=== PATIENT | male | born 1940 | race Caucasian/White ===

== ENCOUNTER 2018-05-31 07:12 | Observation (INO) ==
[2018-05-31] MEDS ORDERED: Ondansetron 4 MG/2 ML VIAL IVP ONE (07:24)
[2018-05-31] MEDS ORDERED: 0.9 % Sodium Chloride 500 ML IVC ONE (07:24)
[2018-05-31] MEDS ORDERED: Aspirin 81 MG TAB.CHEW PO ONE (07:24)
[2018-05-31] MEDS ORDERED: *HR* Morphine 2 MG/ML SYRINGE IVP ONE ×2 (07:24→08:17)
[2018-05-31 07:51] LABS: Basophils # 0.1 K/mcL (0.0-0.2); Basophils % 0.6 %; Eosinophils % 0.1 %; Hematocrit 47.6 % (37.5-50.1); Hemoglobin 15.5 g/dL (12.9-16.9); Immature Granulocytes % 0.3 % (0-4); Lymphocytes # 1.7 K/mcL (0.6-4.6); Lymphocytes % 20.2 %; Mean Corpuscular HGB Conc 32.6 g/dL (31.6-35.5); Mean Corpuscular Hemoglobin 28.3 pg (28.0-33.3); Mean Platelet Volume 10.6 fL (9.4-12.4); Monocytes % 11.3 %; Neutrophils # 5.8 K/mcL (1.6-8.9); Platelet Count 259 K/mcL (140-400); Red Blood Count 5.47 M/mcL (4.19-5.50); Red Cell Distribution Width 13.5 % (11.5-14.5); Segmented Neutrophils % 67.5 %
[2018-05-31 08:02] LABS: INR 1.1; Prothrombin Time 12.5 Seconds (9.4-12.1)
[2018-05-31 08:15] LABS: Albumin 4.5 g/dL (3.5-5.7); Albumin/Globulin Ratio 1.3 (1.1-2.2); Bilirubin,Direct 0.2 mg/dL (0.0-0.2); Bilirubin,Indirect 0.5 mg/dL (0.0-1.2); Bilirubin,Total 0.7 mg/dL (0.3-1.0); Globulin 3.5 g/dL (2.4-3.5)
[2018-05-31 08:17] LABS: Troponin I < 0.03 ng/mL (< 0.04)
--- NOTE | 2018-05-31 08:21 | Emergency Department Note ---
Disposition Clinical Impression: V-tach, Unstable angina Disposition: Admitted As Inpatient Referrals: Jaja Parrish MD [Primary Care Provider] - General Adult HPI - General Chief complaint: ED Extremity Injury, Upper Stated complaint: Left Shoulder Pain Time Seen by Provider: 05/31/18 07:16 Source: patient, family Limitations: no limitations - History of Present Illness Pain Scale: 9 - Related Data Home Medications Medication Instructions Recorded Confirmed Albuterol Sulfate [Albuterol 2 puff IH Q4HR PRN 02/15/16 01/11/18 Inhaler] Calcium Carbonate [Calcium] 500 mg PO DAILY 02/15/16 01/11/18 Cetirizine HCl [24Hour Allergy] 10 mg PO DAILY 02/15/16 01/11/18 Ferrous Sulfate 325 mg PO BIDWM 02/15/16 01/11/18 Gabapentin [Neurontin] 800 mg PO TID 02/15/16 01/11/18 Gemfibrozil [Lopid] 600 mg PO BIDWM 02/15/16 01/11/18 Isosorbide MONOnitrate (24 HR) 30 mg PO DAILY 02/15/16 01/11/18 [Imdur] Metoprolol [Lopressor] 50 mg PO BID 02/15/16 01/11/18 Omeprazole [PriLOSEC] 40 mg PO DAILY 02/15/16 01/11/18 OxyCODONE/APAP 10/325 [Percocet 1 each PO Q4HR PRN 02/15/16 01/11/18 10/325 MG] glipiZIDE [Glipizide] 10 mg PO BID 02/15/16 01/11/18 Cholecalciferol (D-3) [Vitamin D] 5,000 unit PO DAILY 05/12/16 01/11/18 Bumetanide [Bumex] 1 mg PO QPM PRN 03/11/17 01/11/18 Bumetanide [Bumex] 2 mg PO QAM PRN 03/11/17 01/11/18 Insulin Regular U-500 [HumuLIN R 3 unit SQ Q1-2H 03/11/17 01/11/18 U-500] Previous Rx's Medication Instructions Recorded Sulfamethoxazole/Trimeth DS 1 each PO BID #20 tablet 01/11/18 [Bactrim DS] HYDROcodone/Acet 5/325 mg [[place] 1 tab PO Q4H PRN 3 Days #14 tab 05/29/18 5-325 mg] Allergies Allergy/AdvReac Type Severity Reaction Status Date / Time No Known Allergies Allergy Verified 05/31/18 07:14 Past Medical History - Past Medical History Medical history: Reports: cancer, diabetes, hypertension Surgical history: Reports: cancer surgery, coronary bypass (CABG), prostatectomy Psychiatric history: Reports: no psych history - Social History Smoking Status: Former smoker Smokeless Tobacco Status: No Alcohol use: Reports: rarely Drug use: Reports: none Physical Exam - General Limitations: no limitations General appearance: alert Course Vital Signs Temperature 97.7 F 05/31/18 07:14 Pulse Rate 118 05/31/18 07:14 Respiratory Rate 20 05/31/18 07:14 Blood Pressure 133/106 05/31/18 07:14 O2 Sat by Pulse Oximetry 98 05/31/18 07:14 Temperature 97.7 F 05/31/18 07:14 Pulse Rate 93 05/31/18 07:56 Respiratory Rate 18 05/31/18 07:56 Blood Pressure 144/87 05/31/18 07:56 O2 Sat by Pulse Oximetry 98 05/31/18 07:56 Oxygen Delivery Oxygen Delivery Room Air Medical Decision Making - Lab Data Result diagrams: 05/31/18 07:42 Lab Results 05/31/18 05/31/18 05/31/18 Range/Units 07:42 07:42 07:42 WBC 8.6 (4.3-11.1) K/mcL RBC 5.47 (4.19-5.50) M/mcL Hgb 15.5 (12.9-16.9) g/dL Hct 47.6 (37.5-50.1) % MCV 87.0 (83.0-100.0) fL MCH 28.3 (28.0-33.3) pg MCHC 32.6 (31.6-35.5) g/dL RDW 13.5 (11.5-14.5) % Plt Count 259 (140-400) K/mcL MPV 10.6 (9.4-12.4) fL Immature Gran % 0.3 (0-4) % Seg Neutrophils % 67.5 % Lymphocytes % 20.2 % Monocytes % 11.3 % Eosinophils % 0.1 % Basophils % 0.6 % Neutrophils # 5.8 (1.6-8.9) K/mcL Lymphocytes # 1.7 (0.6-4.6) K/mcL Monocytes # 1.0 (0.0-1.3) K/mcL Eosinophils # 0.0 (0.0-0.6) K/mcL Basophils # 0.1 (0.0-0.2) K/mcL PT 12.5 H (9.4-12.1) Seconds INR 1.1 APTT 31.0 (26.0-36.0) Seconds Total Bilirubin 0.7 (0.3-1.0) mg/dL Direct Bilirubin 0.2 (0.0-0.2) mg/dL Indirect Bilirubin 0.5 (0.0-1.2) mg/dL AST 14 (13-39) Units/L ALT 20 (7-52) Units/L Alkaline Phosphatase 63 (34-104) Units/L Troponin I (< 0.04) ng/mL Serum Total Protein 8.0 (6.4-8.9) g/dL Albumin 4.5 (3.5-5.7) g/dL Globulin 3.5 (2.4-3.5) g/dL Albumin/Globulin Ratio 1.3 (1.1-2.2) 05/31/18 Range/Units 07:42 WBC (4.3-11.1) K/mcL RBC (4.19-5.50) M/mcL Hgb (12.9-16.9) g/dL Hct (37.5-50.1) % MCV (83.0-100.0) fL MCH (28.0-33.3) pg MCHC (31.6-35.5) g/dL RDW (11.5-14.5) % Plt Count (140-400) K/mcL MPV (9.4-12.4) fL Immature Gran % (0-4) % Seg Neutrophils % % Lymphocytes % % Monocytes % % Eosinophils % % Basophils % % Neutrophils # (1.6-8.9) K/mcL Lymphocytes # (0.6-4.6) K/mcL Monocytes # (0.0-1.3) K/mcL Eosinophils # (0.0-0.6) K/mcL Basophils # (0.0-0.2) K/mcL PT (9.4-12.1) Seconds INR APTT (26.0-36.0) Seconds Total Bilirubin (0.3-1.0) mg/dL Direct Bilirubin (0.0-0.2) mg/dL Indirect Bilirubin (0.0-1.2) mg/dL AST (13-39) Units/L ALT (7-52) Units/L Alkaline Phosphatase (34-104) Units/L Troponin I < 0.03 (< 0.04) ng/mL Serum Total Protein (6.4-8.9) g/dL Albumin (3.5-5.7) g/dL Globulin (2.4-3.5) g/dL Albumin/Globulin Ratio (1.1-2.2) Attestation Statement - Attestation Attestation: For this encounter, I have reviewed the BURN OUT SCARFING OPERATOR or PA documentation, treatment plan, and medical decision making; and I have had face to face time with this patient. 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 He had a 3 beat unsustained Vtach. Shelbie states he is chest pain free, we have discussed case with Dr. Kaplan who recommends admit to medicine with cards consult NO heparin at this time. Shelbie will be admitted to medicine, stable at this time
[2018-05-31 08:24] LABS: BUN/Creatinine Ratio 16 (6-26); Blood Urea Nitrogen 29 mg/dL (8-23); Calcium 9.7 mg/dL (8.6-10.3); Carbon Dioxide 19 mEq/L (23-29); Chloride 98 mEq/L (98-107); Glucose 394 mg/dL (70-105); Osmolality,Calculated 294 (280-300); Potassium 4.5 mEq/L (3.5-5.1); Sodium 131 mEq/L (136-145); eGFR For Non-African Americans 36 (> 60)
[2018-05-31] MEDS ORDERED: Nitroglycerin 0.4 MG TAB.SUBL SL ONE (08:24)
[2018-05-31] MEDS ORDERED: Furosemide 40 MG/4 ML VIAL IVP ONE (08:27)
--- NOTE | 2018-05-31 08:28 | Emergency Department Note ---
Disposition Clinical Impression: V-tach Shoulder pain, left Qualifiers: Chronicity: acute Qualified Code(s): M25.512 - Pain in left shoulder Disposition: Admitted As Inpatient Condition: Fair Referrals: Jaja Parrish MD [Primary Care Provider] - Forms: ED Satisfaction Letter General Adult HPI - General Chief complaint: ED Extremity Injury, Upper Stated complaint: Left Shoulder Pain Time Seen by Provider: 05/31/18 07:16 Source: patient, family Mode of arrival: private vehicle Limitations: no limitations Nursing Notes Reviewed: Yes Vital Signs Reviewed: Yes - History of Present Illness Pt Subjective Complaint: Left shoulder pain Onset (ago): day(s) Location: left, upper extremity (shoulder) Radiation: non-radiation Pain Severity: severe Pain Scale: 9 Quality: stabbing, aching Consistency: constant Improves with: nothing Worsens with: movement Associated symptoms: Reports: diaphoresis. Denies: chest pain (not now, but a couple times this month), cough, fever/chills, headaches, loss of appetite, malaise, nausea/vomiting, rash, seizure, shortness of breath, syncope, weakness Treatments Prior to Arrival: other (was seen at [facility] two days ago for same. Had xrays done. Dx Strain or Sprain. Rx NSAIDS. Has taken home Rx Percocet with no relief) - Related Data Home Medications Medication Instructions Recorded Confirmed Cetirizine HCl [24Hour Allergy] 10 mg PO DAILY 02/15/16 01/11/18 Gabapentin [Neurontin] 800 mg PO TID 02/15/16 01/11/18 Gemfibrozil [Lopid] 600 mg PO BIDWM 02/15/16 01/11/18 Metoprolol [Lopressor] 50 mg PO BID 02/15/16 01/11/18 Omeprazole [PriLOSEC] 40 mg PO DAILY 02/15/16 01/11/18 OxyCODONE/APAP 10/325 [Percocet 1 each PO Q4HR PRN 02/15/16 01/11/18 10/325 MG] glipiZIDE [Glipizide] 10 mg PO BID 02/15/16 01/11/18 Cholecalciferol (D-3) [Vitamin D] 5,000 unit PO DAILY 05/12/16 01/11/18 Bumetanide [Bumex] 1 mg PO QPM PRN 03/11/17 01/11/18 Bumetanide [Bumex] 2 mg PO QAM PRN 03/11/17 01/11/18 Insulin Pump Cartridge [Insulin 0 unit SQ AD 05/31/18 05/31/18 Pump] Insulin Regular, Human [Novolin R] 0 unit SQ AD 05/31/18 05/31/18 Isosorbide MONOnitrate (24 HR) 60 mg PO DAILY 05/31/18 05/31/18 [Imdur] Allergies Allergy/AdvReac Type Severity Reaction Status Date / Time No Known Allergies Allergy Verified 05/31/18 07:14 All systems ED: reviewed and negative except as stated. Review of Systems: As Per HPI Constitutional: Denies: fever, chills, weakness, night sweats Cardiovascular: Reports: as per HPI, chest pain, dyspnea on exertion. Denies: palpitations, orthopnea, edema, syncope Respiratory: Denies: cough, dyspnea, wheezes, hemoptysis, stridor, sputum production Gastrointestinal: Reports: nausea. Denies: abdominal pain, vomiting, diarrhea Musculoskeletal: Reports: as per HPI, arthralgia. Denies: back pain, neck pain, joint swelling Neurological: Denies: headache, weakness, numbness, paresthesias, confusion, abnormal gait, vertigo Hematological/Lymphatic: Denies: easy bleeding, easy bruising Past Medical History - Past Medical History Attestation: Yes The following information was validated with the patient. Source: patient Medical history: Reports: cancer, diabetes, hypertension Surgical history: Reports: cancer surgery, coronary bypass (CABG), prostatectomy Psychiatric history: Reports: no psych history - Social History Smoking Status: Former smoker Smokeless Tobacco Status: No Alcohol use: Reports: rarely Drug use: Reports: none Physical Exam - General Limitations: no limitations General appearance: alert, anxious, in distress - Head Head exam: atraumatic, normocephalic, normal inspection - Eye Eye exam: Present: normal appearance, PERRL. Absent: scleral icterus, conjunctival injection, miosis, mydriasis, periorbital swelling - ENT ENT exam: mucous membranes moist - Neck Neck exam: Present: normal inspection, full ROM, trachea midline. Absent: tenderness, meningismus - Chest Chest inspection: Present: normal inspection. Absent: tenderness - Respiratory Respiratory exam: Present: normal lung sounds bilaterally. Absent: respiratory distress, wheezes - Cardiovascular Cardiovascular exam: Present: normal rhythm, tachycardia. Absent: systolic murmur, diastolic murmur - Extremities Exam Extremities exam: Present: normal inspection, normal capillary refill. Absent: full ROM, tenderness, joint swelling - Expanded Upper Extremity Exam Shoulder exam: Present: normal inspection. Absent: full ROM, tenderness, swelling, ecchymosis, deformity, crepitus, dislocation, erythema, tenderness over AC joint Arm exam: Present: normal inspection. Absent: tenderness, swelling, ecchymosis, erythema Elbow exam: Present: normal inspection, full ROM. Absent: tenderness, swelling Forearm/Wrist exam: Present: normal inspection, full ROM. Absent: tenderness, swelling Hand exam: Present: normal inspection, full ROM. Absent: tenderness, swelling Neuromotor exam: Normal: wrist extension, thumb opposition, thumb IP flexion, thumb adduction, fingers 2-5 abduction Neurosensory exam: Normal: radial nerve, ulnar nerve, median nerve, axillary nerve Hand tendon exam: Normal: flexor digitorum profundus (location), flexor digitorum superficialis (location), extensor tendon (location) Vascular exam: Normal: capillary refill, radial pulse, ulnar pulse - Neurological Exam Neurological exam: Present: alert, oriented X3, CN II-XII intact, normal gait - Psychiatric Psychiatric exam: Present: normal affect, normal mood - Skin Skin exam: Present: warm, dry, intact, normal color Course Course Narrative: Patient presents to the ER with his for evaluation of left shoulder pain 5 days. The pain has been constant, not worsening. It has not been alleviated with his home dose of Percocet. He denies any recent trauma. He did lift some propane tanks the day before the pain began. However, while lifting he did not experience any pain. Patient appears to be in a lot of pain. He is diaphoretic. He also complains of nausea. He does have an extensive history of coronary artery disease and has had a CABG twice, most recently in 2006. He has had a few episodes of chest pain this month. The pain was relieved by his home prescription of nitroglycerin. He is tachycardic, normotensive, afebrile with normal oxygen s aturation. We will initiate cardiac workup. Case discussed with Dr.N. Pérez. She has had [id number] time with the patient and agrees with the assessment, plan. Patient's EKG showed sinus tach with no significant changes compared to previous. He has [address] mm of depression or [address] depression in lead 1. Patient's nurse reports that patient had a run of V. tach. She was able to print out a strip of this and then later captured it on an EKG. He had three beats of V. tach. This happened two additional times. Cardiology was consulted. - Reevaluation(s) Reevaluation #1: No pain relief with morphine. No pain relief with nitroglycerin sublingual 3 Blood pressure still normal. Patient received Dilaudid 2 mg IV. This did provide mild improvement in his pain. - Consultations Consultation #1: Case was discussed with Dr. Kaplan, fur glosser. He recommends admission to the hospitalist. He states that the runs of V. tach are most likely secondary to the patient's coronary artery disease and or heart failure and he does not recommend heparin. He is happy to consult on the patient. Consultation #2: Case discussed with Dr. Yuen, hospitalist. Patient accepted. He requests that we give him a dose of metoprolol. Time: 09:00 Vital Signs Temperature 97.7 F 05/31/18 07:14 Pulse Rate 118 05/31/18 07:14 Respiratory Rate 20 05/31/18 07:14 Blood Pressure 133/106 05/31/18 07:14 O2 Sat by Pulse Oximetry 98 05/31/18 07:14 Temperature 97.7 F 05/31/18 07:14 Pulse Rate 93 05/31/18 07:56 Respiratory Rate 18 05/31/18 07:56 Blood Pressure 144/87 05/31/18 07:56 O2 Sat by Pulse Oximetry 98 05/31/18 07:56 Oxygen Delivery Oxygen Delivery Room Air Medical Decision Making - Medical Records Medical records reviewed: Yes I reviewed the patient's medical records. - Lab Data Lab results reviewed: Yes I reviewed the patient's lab results. Lab results narrative: Laboratory Last Values WBC 8.6 K/mcL (4.3-11.1) 05/31/18 07:42 RBC 5.47 M/mcL (4.19-5.50) 05/31/18 07:42 Hgb 15.5 g/dL (12.9-16.9) 05/31/18 07:42 Hct 47.6 % (37.5-50.1) 05/31/18 07:42 MCV 87.0 fL (83.0-100.0) 05/31/18 07:42 MCH 28.3 pg (28.0-33.3) 05/31/18 07:42 MCHC 32.6 g/dL (31.6-35.5) 05/31/18 07:42 RDW 13.5 % (11.5-14.5) 05/31/18 07:42 Plt Count 259 K/mcL (140-400) 05/31/18 07:42 MPV 10.6 fL (9.4-12.4) 05/31/18 07:42 Immature Gran % 0.3 % (0-4) 05/31/18 07:42 Seg Neutrophils % 67.5 % 05/31/18 07:42 Lymphocytes % 20.2 % 05/31/18 07:42 Monocytes % 11.3 % 05/31/18 07:42 Eosinophils % 0.1 % 05/31/18 07:42 Basophils % 0.6 % 05/31/18 07:42 Neutrophils # 5.8 K/mcL (1.6-8.9) 05/31/18 07:42 Lymphocytes # 1.7 K/mcL (0.6-4.6) 05/31/18 07:42 Monocytes # 1.0 K/mcL (0.0-1.3) 05/31/18 07:42 Eosinophils # 0.0 K/mcL (0.0-0.6) 05/31/18 07:42 Basophils # 0.1 K/mcL (0.0-0.2) 05/31/18 07:42 PT 12.5 Seconds (9.4-12.1) H 05/31/18 07:42 INR 1.1 05/31/18 07:42 APTT 31.0 Seconds (26.0-36.0) 05/31/18 07:42 Sodium 131 mEq/L (136-145) L 05/31/18 07:42 Potassium 4.5 mEq/L (3.5-5.1) 05/31/18 07:42 Chloride 98 mEq/L (98-107) 05/31/18 07:42 Carbon Dioxide 19 mEq/L (23-29) L 05/31/18 07:42 BUN 29 mg/dL (8-23) H 05/31/18 07:42 Creatinine 1.84 mg/dL (0.70-1.30) H 05/31/18 07:42 Est GFR ( Amer) 44 (> 60) L 05/31/18 07:42 Est GFR (Non-Af Amer) 36 (> 60) L 05/31/18 07:42 BUN/Creatinine Ratio 16 (6-26) 05/31/18 07:42 Glucose 394 mg/dL (70-105) H 05/31/18 07:42 POC Glucose 345 mg/dL (70-99) H 05/31/18 08:31 Calculated Osmolality 294 (280-300) 05/31/18 07:42 Calcium 9.7 mg/dL (8.6-10.3) 05/31/18 07:42 Magnesium 2.0 mg/dL (1.6-2.6) 05/31/18 07:42 Total Bilirubin 0.7 mg/dL (0.3-1.0) 05/31/18 07:42 Direct Bilirubin 0.2 mg/dL (0.0-0.2) 05/31/18 07:42 Indirect Bilirubin 0.5 mg/dL (0.0-1.2) 05/31/18 07:42 AST 14 Units/L (13-39) 05/31/18 07:42 ALT 20 Units/L (7-52) 05/31/18 07:42 Alkaline Phosphatase 63 Units/L (34-104) 05/31/18 07:42 Troponin I < 0.03 ng/mL (< 0.04) 05/31/18 13:40 B-Natriuretic Peptide 242 pg/mL (Less than 100) H 05/31/18 07:42 Serum Total Protein 8.0 g/dL (6.4-8.9) 05/31/18 07:42 Albumin 4.5 g/dL (3.5-5.7) 05/31/18 07:42 Globulin 3.5 g/dL (2.4-3.5) 05/31/18 07:42 Albumin/Globulin Ratio 1.3 (1.1-2.2) 05/31/18 07:42 Lipase 8 Units/L (11-82) L 05/31/18 07:42 Result diagrams: 05/31/18 07:42 Lab Results 05/31/18 05/31/18 05/31/18 Range/Units 07:42 07:42 07:42 WBC 8.6 (4.3-11.1) K/mcL RBC 5.47 (4.19-5.50) M/mcL Hgb 15.5 (12.9-16.9) g/dL Hct 47.6 (37.5-50.1) % MCV 87.0 (83.0-100.0) fL MCH 28.3 (28.0-33.3) pg MCHC 32.6 (31.6-35.5) g/dL RDW 13.5 (11.5-14.5) % Plt Count 259 (140-400) K/mcL MPV 10.6 (9.4-12.4) fL Immature Gran % 0.3 (0-4) % Seg Neutrophils % 67.5 % Lymphocytes % 20.2 % Monocytes % 11.3 % Eosinophils % 0.1 % Basophils % 0.6 % Neutrophils # 5.8 (1.6-8.9) K/mcL Lymphocytes # 1.7 (0.6-4.6) K/mcL Monocytes # 1.0 (0.0-1.3) K/mcL Eosinophils # 0.0 (0.0-0.6) K/mcL Basophils # 0.1 (0.0-0.2) K/mcL PT 12.5 H (9.4-12.1) Seconds INR 1.1 APTT 31.0 (26.0-36.0) Seconds Total Bilirubin 0.7 (0.3-1.0) mg/dL Direct Bilirubin 0.2 (0.0-0.2) mg/dL Indirect Bilirubin 0.5 (0.0-1.2) mg/dL AST 14 (13-39) Units/L ALT 20 (7-52) Units/L Alkaline Phosphatase 63 (34-104) Units/L Troponin I (< 0.04) ng/mL Serum Total Protein 8.0 (6.4-8.9) g/dL Albumin 4.5 (3.5-5.7) g/dL Globulin 3.5 (2.4-3.5) g/dL Albumin/Globulin Ratio 1.3 (1.1-2.2) 05/31/18 Range/Units 07:42 WBC (4.3-11.1) K/mcL RBC (4.19-5.50) M/mcL Hgb (12.9-16.9) g/dL Hct (37.5-50.1) % MCV (83.0-100.0) fL MCH (28.0-33.3) pg MCHC (31.6-35.5) g/dL RDW (11.5-14.5) % Plt Count (140-400) K/mcL MPV (9.4-12.4) fL Immature Gran % (0-4) % Seg Neutrophils % % Lymphocytes % % Monocytes % % Eosinophils % % Basophils % % Neutrophils # (1.6-8.9) K/mcL Lymphocytes # (0.6-4.6) K/mcL Monocytes # (0.0-1.3) K/mcL Eosinophils # (0.0-0.6) K/mcL Basophils # (0.0-0.2) K/mcL PT (9.4-12.1) Seconds INR APTT (26.0-36.0) Seconds Total Bilirubin (0.3-1.0) mg/dL Direct Bilirubin (0.0-0.2) mg/dL Indirect Bilirubin (0.0-1.2) mg/dL AST (13-39) Units/L ALT (7-52) Units/L Alkaline Phosphatase (34-104) Units/L Troponin I < 0.03 (< 0.04) ng/mL Serum Total Protein (6.4-8.9) g/dL Albumin (3.5-5.7) g/dL Globulin (2.4-3.5) g/dL Albumin/Globulin Ratio (1.1-2.2) - Radiology Data Radiology results reviewed: Yes I reviewed the patient's radiology results. Chest X-Ray 05/31/18 07:25 IMPRESSION: Linear atelectasis or scarring in the left lung base. Otherwise no acute cardiopulmonary findings. D/ / Zakia Alvarado MD / Zakia Alvarado MD Interpreting Provider: Zakia Alvarado MD Echocardiogram 05/31/18 10:26 Impressions: LVEF 70-75%, hyperdynamic LV. Normal LV chamber size, wall thickness and systolic function. Mild left ventricular diastolic dysfunction. Normal right ventricular structure and function. No significant valvular dysfunction. Unable to estimate RVSP due to lack of TR jet. Left Ventricular Wall Motion: Rest Echo Findings The apex, apical inferior, mid inferior, basal inferior, apical anterior, mid anterior, basal anterior, apical septal, mid inferior septal, basal inferior septal, apical lateral, mid anterior lateral, basal anterior lateral, mid anterior septal, mid inferior lateral, basal anterior septal and basal inferior lateral jackman were hyperkinetic. Findings: Study Quality * Technically sub-optimal due to poor echocardiographic windows. ECG Findings * Normal sinus rhythm. Left Ventricle * LVEF 70-75%, hyperdynamic LV. * Normal LV chamber size, wall thickness and systolic function. * Mild left ventricular diastolic dysfunction. * Definity echo contrast was used. Right Ventricle * Normal right ventricular structure and function. Left Atrium * Normal left atrial size. Right Atrium * Normal right atrial size. Interatrial Septum * Interatrial septum not well evaluated. Aortic Valve * Aortic valve not well visualized. * Moderately calcified aortic valve leaflets. * No aortic stenosis. * No aortic regurgitation. Mitral Valve * Moderately calcified mitral valve leaflets. * No mitral stenosis. * No mitral regurgitation. Tricuspid Valve * Tricuspid valve not well visualized. * No tricuspid stenosis. * No tricuspid regurgitation. * Unable to estimate RVSP due to lack of TR jet. Pulmonic Valve * Pulmonic valve is not well visualized. * No pulmonic stenosis. * No pulmonic regurgitation. Aorta * Normally sized aortic root. Pericardium * The pericardium appears normal. IVC * The IVC is not well evaluated. - EKG Data EKG #1 EKG attestation: Yes I reviewed and interpreted this EKG. EKG shows normal: sinus rhythm Rate: tachycardia Rhythm: NSR Ladd/QRS: normal Interpretation: unchanged when compared to prior tracing (date), nonspecific ST- T wave changes - Core Measures AMI Core Measures Followed: Yes
[2018-05-31] MEDS: Nitroglycerin 0.4 MG TAB.SUBL SL PRN ×3 (08:35→08:52)
[2018-05-31] MEDS ORDERED: *HR* HYDROmorphone 2 MG/ML SYRINGE IVP ONE (08:49)
[2018-05-31] MEDS ORDERED: *HR* Metoprolol 5 MG/5 ML VIAL IVP ONE (09:11)
[2018-05-31] MEDS ORDERED: Naloxone 0.4 MG/ML INJ IVP PRN (09:37)
[2018-05-31] MEDS ORDERED: Acetaminophen 325 MG TABLET PO PRN (09:37)
[2018-05-31] MEDS ORDERED: Bumetanide 1 MG TABLET PO PRN ×2 (09:39)
--- NOTE | 2018-05-31 10:21 | Internal Med History&Physical ---
Date of Encounter: 05/31/18 Time of Encounter: 09:00 Internal Medicine - H&P: HPI Chief complaint: Left shoulder pain Admitted From: Home History of present illness: Mr. Linder is a 77 year old male with past neck or history of CAD status post CA BG, RCC status post right nephrectomy, prostate cancer status post prostatectomy, diabetes, hypertension, COPD, morbid obesity, who presented to the ED with 4 day history of left shoulder pain. Started after lifting a few propane tanks the night before. Sharp, nonradiating, worse with movement, and was not relieved with PRN percocet that he took. STates that it was different from his previous CAD episode when he just had "funny sensation on his chest". Denies any shortness of breath, palpitation, diaphoresis, orthopnea, PND, or leg swelling. No fever/chills or sick contacts. Denies any GI/ symptoms. He did mention that he had nausea after taking percocet and was not able to do much for the last several days due to excruciating pain. In the ED, he was afebrile and hemodynamically stable. Labs were unremarkable. EKG showe NSR without any ST-T changes concerning for ischemia. T-wave inversion in aVL was there in previous EKG as well. HE had 3 runs of NSVT, 3 beats each, in the ED which resolved spontaneously. He was given IV analgesics as well as ASA and admitted for further management. Past Med Surg Social Fam HX - Past Medical History Attestation: Yes The following information was validated with the patient. Medical history: cancer, diabetes, hypertension Additional medical history: neuropathy, diabetic. renal and prostate cancer Psychiatric history: no psych history - Past Surgical History Surgical History: cancer surgery, coronary bypass (CABG), prostatectomy Additional surgical history: right kidney removed - Social History Smoking Status: Former smoker Smokeless Tobacco Status: No Alcohol use: rarely Drug use: none - Additional Family History Additional family history: Reviewed and noncontributory Internal Medicine - H&P: Meds Cetirizine HCl [24Hour Allergy] 10 mg PO DAILY 02/15/16 [History] Gabapentin [Neurontin] 800 mg PO TID 02/15/16 [History] Gemfibrozil [Lopid] 600 mg PO BIDWM 02/15/16 [History] Metoprolol [Lopressor] 50 mg PO BID 02/15/16 [History] Omeprazole [PriLOSEC] 40 mg PO DAILY 02/15/16 [History] OxyCODONE/APAP 10/325 [Percocet 10/325 MG] 1 each PO Q4HR PRN 02/15/16 [History] glipiZIDE [Glipizide] 10 mg PO BID 02/15/16 [History] Cholecalciferol (D-3) [Vitamin D] 5,000 unit PO DAILY 05/12/16 [History] Bumetanide [Bumex] 1 mg PO QPM PRN 03/11/17 [History] Bumetanide [Bumex] 2 mg PO QAM PRN 03/11/17 [History] Insulin Pump Cartridge [Insulin Pump] 0 unit SQ AD 05/31/18 [History] Insulin Regular, Human [Novolin R] 0 unit SQ AD 05/31/18 [History] Isosorbide MONOnitrate (24 HR) [Imdur] 60 mg PO DAILY 05/31/18 [History] Allergy/AdvReac Type Severity Reaction Status Date / Time No Known Allergies Allergy Verified 05/31/18 07:14 All Systems PM: A 10-system review of systems was performed and is negative for pertinent findings except as documented above in the HPI. - Constitutional Vitals: Temp Pulse Resp BP Pulse Ox 97.7 F 96 20 171/81 97 05/31/18 07:14 05/31/18 09:36 05/31/18 09:36 05/31/18 09:36 05/31/18 09:36 Exam: General: Alert and oriented, obese male not in acute distress. HEENT:EOM, pupils equal, round and reactive. Cardiovascular:Normal S1 & S2, No JVD. Pulse regular. No chest wall tenderness Lungs: clear to auscultation, no wheezes/rales Abdomen:Soft, non-tender, no rigidity. Extremities: No obvious effusion on left shoulder, point tenderness on left acromion process noted. Range of motion limited due to discomfort. Neurological:Normal cognition and motor skills. Non-focal Skin:Normal color, no rash, no lesions. Pulses:Carotid and radial pulses normal +2. Rest of the physical exam is non contributory Internal Med - H&P Results - Labs CBC & Chem 7: 05/31/18 07:42 05/31/18 07:42 Labs: Short CBC 05/31/18 Range/Units 07:42 WBC 8.6 (4.3-11.1) K/mcL Hgb 15.5 (12.9-16.9) g/dL Hct 47.6 (37.5-50.1) % Plt Count 259 (140-400) K/mcL Neutrophils # 5.8 (1.6-8.9) K/mcL BMP 05/31/18 07:42 Sodium 131 L Potassium 4.5 Chloride 98 Carbon Dioxide 19 L BUN 29 H Creatinine 1.84 H Glucose 394 H Calcium 9.7 Cardiac Enzymes 05/31/18 Range/Units 07:42 Troponin I < 0.03 (< 0.04) ng/mL Liver Function 05/31/18 Range/Units 07:42 Total Bilirubin 0.7 (0.3-1.0) mg/dL Direct Bilirubin 0.2 (0.0-0.2) mg/dL AST 14 (13-39) Units/L ALT 20 (7-52) Units/L Alkaline Phosphatase 63 (34-104) Units/L Albumin 4.5 (3.5-5.7) g/dL - Impressions ITS Impressions Chest X-Ray 05/31/18 07:25 IMPRESSION: Linear atelectasis or scarring in the left lung base. Otherwise no acute cardiopulmonary findings. D/ / Zakia Alvarado MD / Zakia Alvarado MD Interpreting Provider: Zakia Alvarado MD - Assessment and plan (1) Shoulder pain, left Current Visit: Yes Status: Acute Assessment and plan: preceded by lifting heavy objects one night prior, point tenderness on exam unlikely to be ACS-mimic but pt does have significant CAD history with CABG 7 years ago stress test 04/2018: Negative for ischemia or infarct had 3 runs of NSVT which self-aborted, cardiology consult placed in the ED trend troponin once ACS ruled out, will proceed with shoulder MRI check echocardiogram Qualifiers: Chronicity: acute Qualified Code(s): M25.512 - Pain in left shoulder (2) V-tach Current Visit: Yes Status: Acute Assessment and plan: As above, could be triggered by pain as well check Mg, K>4, Mg > 2 cardiology input appreciated (3) CAD (coronary artery disease) Current Visit: No Status: Chronic Assessment and plan: trend troponin as above Resume home meds Qualifiers: Coronary Disease-Associated Artery/Lesion type: [place] artery [place] vs. 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 Resume home meds Avoid nephrotoxins (6) DVT prophylaxis Current Visit: Yes Status: Acute Assessment and plan: Subcutaneous heparin - Time Spent With Patient Total time spent is greater than 50% in coordination of care (as documented) at patient's floor/unit and/or counseling patient:
[2018-05-31] MEDS ORDERED: Dextrose Gel 15 GM/37.5 ML TUBE PO PRN ×2 (10:27)
[2018-05-31] MEDS ORDERED: D5% in Water 1,000 ML IVC PRN (10:27)
[2018-05-31] MEDS ORDERED: *HR* Dextrose 50 % in Water (Syg) 50 ML SYRINGE IVP PRN (10:27)
[2018-05-31] MEDS: *HR* OxyCODONE Immed Rel 5 MG TABLET PO PRN ×2 (14:58→21:19)
[2018-05-31] MEDS ORDERED: Perflutren Lipid Microsphere 1.3 ML in 0.9 % Sodium Chloride 8.7 ML IVP ONE (15:50)
[2018-05-31] MEDS ORDERED: *HR* Labetalol 20 MG/4 ML SYRINGE IVP PRN (19:00)
[2018-05-31] MEDS: Insulin LISPRO 300 UNITS/3 ML VIAL SQ SCH (20:04)
[2018-05-31] MEDS: *HR* Heparin 5,000 UNIT/ML VIAL SQ SCH ×2 (20:05→21:20)
[2018-05-31] MEDS: Gabapentin 400 MG CAPSULE PO SCH ×2 (20:05→21:19)
[2018-05-31] MEDS ORDERED: Insulin LISPRO 300 UNITS/3 ML VIAL SQ SCH (21:00)
[2018-06-01] MEDS: *HR* OxyCODONE Immed Rel 5 MG TABLET PO PRN (05:52)
[2018-06-01] MEDS: *HR* Heparin 5,000 UNIT/ML VIAL SQ SCH ×2 (05:52→14:48)
[2018-06-01] MEDS: Gabapentin 400 MG CAPSULE PO SCH ×2 (08:52→14:27)
[2018-06-01] MEDS: Insulin LISPRO 300 UNITS/3 ML VIAL SQ SCH ×2 (08:54→14:46)
[2018-06-01] MEDS: *HR* HYDROcodone/Acet 5/325 mg TABLET PO PRN ×2 (08:58→14:28)
[2018-06-01] MEDS ORDERED: Loratadine 10 MG TABLET PO SCH (09:00)
[2018-06-01] MEDS ORDERED: Cholecalciferol (D-3) 1,000 UNIT TABLET PO SCH (09:00)
[2018-06-01] MEDS ORDERED: Insulin DETEMIR 100 UNIT/ML X5UNITS SQ SCH (09:00)
[2018-06-01] MEDS ORDERED: Isosorbide MONOnitrate (24 HR) 60 MG TAB.ER.24H PO SCH (09:00)
[2018-06-01] MEDS ORDERED: *HR* LORazepam 2 MG/ML VIAL IVP ONE (09:10)
[2018-06-01 09:47] LABS: Basophils % 0.5 %; Eosinophils % 0.1 %; Hematocrit 48.1 % (37.5-50.1); Hemoglobin 15.4 g/dL (12.9-16.9); Immature Granulocytes % 0.2 % (0-4); Lymphocytes # 1.7 K/mcL (0.6-4.6); Lymphocytes % 19.4 %; Mean Corpuscular Hemoglobin 28.1 pg (28.0-33.3); Mean Corpuscular Volume 87.6 fL (83.0-100.0); Mean Platelet Volume 10.8 fL (9.4-12.4); Platelet Count 240 K/mcL (140-400); Red Blood Count 5.49 M/mcL (4.19-5.50); Red Cell Distribution Width 13.5 % (11.5-14.5); Segmented Neutrophils % 68.8 %
--- NOTE | 2018-06-01 10:00 | Cardiology Consult Note ---
<Obie Horne Janet - Last Filed: 06/01/18 11:04> Date of Encounter: 06/01/18 Time of Encounter: 09:58 Assessment and Plan (1) NSVT (nonsustained ventricular tachycardia) Status: Acute Cardiology consulted for three 3 beat runs of NSVT while in ED--confirmed on strips. Troponin negative x 2. Telemetry reviewed. Isolated frequent PVCs noted, but no recurrence of NSVT. Pt denies chest pain. Reports chronic dyspnea. Left shoulder pain musculoskeletal in origin as detailed below. TTE EF preserved, no significant valvular dysfunction. Recent nuclear stress test 04/2018 negative for ischemia or infarct. [facility] 2014 55% LMCA disease, 2/2 patent bypass grafts. K and Mag WNL. On Lopressor 50mg BID. Will increase to 100mg BID. Anticipate sign off once seen and evaluated by Dr. Kaplan. Continue telemetry while inpt. Will coordinate outpt follow-up. (2) Shoulder pain, left Status: Acute Developed left shoulder pain following lifting propane tanks. Shoulder tender on palpation and with movement--musculoskeletal in nature, not cardiac origin. Management per primary team. Qualifiers: Chronicity: acute Qualified Code(s): M25.512 - Pain in left shoulder (3) CAD (coronary artery disease) Status: Chronic Hx CABG. Start ASA and Statin. Continue BB and nitrates. Qualifiers: Coronary Disease-Associated Artery/Lesion type: [place] artery [place] vs. transplanted heart: [place] heart Associated angina: angina presence unspecified Qualified Code(s): I25.10 - Atherosclerotic heart disease of [place] coronary artery without angina pectoris Discussion w patient/family: The assessment and plan as outlined above was discussed with the patient and/or family members who expressed understanding and agreement. All questions were answered. Thank you for involving us in the care of your patient. Please call with any questions. History of Present Illness Consult date: 06/01/18 Consult reason: NSVT Chief complaint: shoulder pain History of present illness: Mr. Linder is a 77 year old male with PMH of CAD s/p 2V CABG, RCC s/p right nephrectomy, prostate cancer s/p prostatectomy, DM, HTN, COPD, morbid obesity, who presented to the ED with 4 day history of left shoulder pain that started after lifting propane tanks the night before. Sharp, nonradiating, worse with movement, and was not relieved with PRN percocet that he took. Different from prior anginal equivalent. Denies chest pain. Reports chronic exertional shortness of breath. Troponin negative x 2. While in ED, pt had three 3 beat runs of NSVT. Strips reviewed and confirmed. Cardiology consulted for further recs. Recent CV testing: TTE 05/31/18: LVEF 70-75%, hyperdynamic LV, mild LVDD, normal RV structure and function. No significant valvular dysfunction. Nuclear stress test 04/01/18: Gated EF 59%. Perfusion imaging negative for ischemia or infarct. [facility] 01/26/15: 55% Left main stenosis. S/P CABG 2 of 2 patent bypass grafts. Past Med Surg Social Fam HX - Past Medical History Medical history: cancer, coronary artery disease, diabetes, hypertension Additional medical history: neuropathy, diabetic. renal and prostate cancer Psychiatric history: no psych history - Past Surgical History Surgical History: cancer surgery, coronary bypass (CABG), prostatectomy Additional surgical history: right kidney removed - Social History Smoking Status: Former smoker Smokeless Tobacco Status: No Alcohol use: rarely Drug use: none Medications and Allergies Cetirizine HCl [24Hour Allergy] 10 mg PO DAILY 02/15/16 [History] Gabapentin [Neurontin] 800 mg PO TID 02/15/16 [History] Gemfibrozil [Lopid] 600 mg PO BIDWM 02/15/16 [History] Omeprazole [PriLOSEC] 40 mg PO DAILY 02/15/16 [History] OxyCODONE/APAP 10/325 [Percocet 10/325 MG] 1 each PO Q4HR PRN 02/15/16 [History] glipiZIDE [Glipizide] 10 mg PO BID 02/15/16 [History] Cholecalciferol (D-3) [Vitamin D] 5,000 unit PO DAILY 05/12/16 [History] Bumetanide [Bumex] 1 mg PO QPM PRN 03/11/17 [History] Bumetanide [Bumex] 2 mg PO QAM PRN 03/11/17 [History] Insulin Pump Cartridge [Insulin Pump] 0 unit SQ AD 05/31/18 [History] Insulin Regular, Human [Novolin R] 0 unit SQ AD 05/31/18 [History] Isosorbide MONOnitrate (24 HR) [Imdur] 60 mg PO DAILY 05/31/18 [History] Aspirin 81 mg PO DAILY #30 tab.chew 06/01/18 [Rx] Metoprolol [Lopressor] 100 mg PO BID #120 tablet 06/01/18 [Rx] Oxycodone HCl 5 mg PO Q6H PRN 3 Days #12 tablet 06/01/18 [Rx] Allergy/AdvReac Type Severity Reaction Status Date / Time No Known Allergies Allergy Verified 05/31/18 07:14 All Systems Review: The remainder of the systems were reviewed and are negative - Cardiovascular Cardiovascular: as per HPI, dyspnea on exertion - Respiratory Respiratory: dyspnea Physical Examination Vital Signs, Last 4 Hours Temp Pulse Resp BP Pulse Ox 06/01/18 06:46 97.7 F 88 18 166/98 94 Vital Signs Temp Pulse Resp BP Pulse Ox 06/01/18 06:46 97.7 F 88 18 166/98 94 06/01/18 05:05 97.7 F 88 15 116/79 92 05/31/18 23:07 98.2 F 90 20 160/90 91 05/31/18 20:33 98.0 F 98 18 180/110 93 05/31/18 16:59 97.3 F L 96 20 166/123 96 05/31/18 16:24 80 18 185/102 98 05/31/18 11:30 93 20 156/108 97 Intake and Output 05/31/18 06/01/18 06/01/18 23:59 07:59 15:59 Intake Total 500 / 500 0 / 0 Output Total 0 / 0 325 / 325 Balance 500 / 500 -325 / -325 Intake: Oral 500 / 500 0 / 0 Output: Urine 0 / 0 325 / 325 Other: # Voids 1 Weight 122.5 kg 122.7 kg Blood Glucose* 335 309 Patient Weight 06/01/18 23:59 Weight 122.7 kg General: Conversant, No Apparent Distress HEENT: Atraumatic, Normocephaly, Mucus Membranes Moist Neck: No JVD, Normal carotid pulses Cardiac: Reg Rate and Rhythm, Normal S1 and S2, No Murmur Lungs: Normal Breath Sounds, No Wheeze, Rales, Rhonchi Neuro: Alert and responsive, No focal deficits noted Abdomen: Soft, Non-Tender Skin: No rashes noted on visualized skin Musculoskeletal: No Chest Wall Tenderness Extremities: No Clubbing, No Cyanosis, No Edema, Normal Pulses Results 06/01/18 09:17 06/01/18 09:17 Lab Results 05/31/18 05/31/18 06/01/18 07:42 13:40 09:17 WBC 8.8 Hgb 15.4 Hct 48.1 Plt Count 240 Magnesium 2.0 Troponin I < 0.03 Short CBC 06/01/18 Range/Units 09:17 WBC 8.8 (4.3-11.1) K/mcL Hgb 15.4 (12.9-16.9) g/dL Hct 48.1 (37.5-50.1) % Plt Count 240 (140-400) K/mcL Neutrophils # 6.0 (1.6-8.9) K/mcL Cardiac Enzymes 05/31/18 Range/Units 13:40 Troponin I < 0.03 (< 0.04) ng/mL Impressions Echocardiogram 05/31/18 10:26 Impressions: LVEF 70-75%, hyperdynamic LV. Normal LV chamber size, wall thickness and systolic function. Mild left ventricular diastolic dysfunction. Normal right ventricular structure and function. No significant valvular dysfunction. Unable to estimate RVSP due to lack of TR jet. Left Ventricular Wall Motion: Rest Echo Findings The apex, apical inferior, mid inferior, basal inferior, apical anterior, mid anterior, basal anterior, apical septal, mid inferior septal, basal inferior septal, apical lateral, mid anterior lateral, basal anterior lateral, mid anterior septal, mid inferior lateral, basal anterior septal and basal inferior lateral jackman were hyperkinetic. Findings: Study Quality * Technically sub-optimal due to poor echocardiographic windows. ECG Findings * Normal sinus rhythm. Left Ventricle * LVEF 70-75%, hyperdynamic LV. * Normal LV chamber size, wall thickness and systolic function. * Mild left ventricular diastolic dysfunction. * Definity echo contrast was used. Right Ventricle * Normal right ventricular structure and function. Left Atrium * Normal left atrial size. Right Atrium * Normal right atrial size. Interatrial Septum * Interatrial septum not well evaluated. Aortic Valve * Aortic valve not well visualized. * Moderately calcified aortic valve leaflets. * No aortic stenosis. * No aortic regurgitation. Mitral Valve * Moderately calcified mitral valve leaflets. * No mitral stenosis. * No mitral regurgitation. Tricuspid Valve * Tricuspid valve not well visualized. * No tricuspid stenosis. * No tricuspid regurgitation. * Unable to estimate RVSP due to lack of TR jet. Pulmonic Valve * Pulmonic valve is not well visualized. * No pulmonic stenosis. * No pulmonic regurgitation. Aorta * Normally sized aortic root. Pericardium * The pericardium appears normal. IVC * The IVC is not well evaluated. Active Medications Acetaminophen (Tylenol) 650 mg PO Q6HR PRN PRN Reason: Mild Pain/Fever Stop: 11/30/18 09:38 Hydrocodone Bitart/Acetaminophen ([place] 5-325 Mg) 1 tab PO Q6HR PRN PRN Reason: Moderate Pain Stop: 11/30/18 09:38 Last Admin: 06/01/18 08:58 Dose: 1 tab Bumetanide (Bumex) 1 mg PO QPM PRN PRN Reason: swelling Stop: 11/30/18 09:40 Bumetanide (Bumex) 2 mg PO QAM PRN PRN Reason: swelling Stop: 11/30/18 09:40 Dextrose/Water (Dextrose 50% (Syg)) 25 ml IVP AD PRN PRN Reason: Hypoglycemia Stop: 11/30/18 10:28 Gabapentin (Neurontin) 800 mg PO TID ESTER Stop: 11/30/18 15:01 Last Admin: 06/01/18 08:52 Dose: 800 mg Glucagon (Glucagen) 1 mg IM ONCE PRN PRN Reason: Hypoglycemia Stop: 11/30/18 10:28 Glucose (Gluctose) 15 gm PO ONCE PRN PRN Reason: Hypoglycemia Stop: 11/30/18 10:28 Glucose (Gluctose) 30 gm PO ONCE PRN PRN Reason: Hypoglycemia Stop: 11/30/18 10:28 Heparin Sodium (Porcine) (Heparin) 5,000 unit SQ Q8HCO ESTER Stop: 11/30/18 14:01 Last Admin: 06/01/18 05:52 Dose: 5,000 unit Dextrose (Dextrose 5%) 1,000 mls @ 100 mls/hr IVC .Q10H PRN PRN Reason: HYPOGLYCEMIA Stop: 11/30/18 10:28 Insulin Detemir (Levemir) 10 unit SQ BID ESTER Stop: 12/01/18 09:01 Last Admin: 06/01/18 08:59 Dose: 10 unit Insulin Human Lispro (Humalog) 0 units SQ HS [facility]; Protocol Stop: 11/30/18 21:01 Last Admin: 05/31/18 21:20 Dose: 6 units Insulin Human Lispro (Humalog) 0 units SQ TIDAC [facility]; Protocol Stop: 11/30/18 11:31 Last Admin: 06/01/18 08:54 Dose: 12 units Isosorbide Mononitrate (Imdur) 60 mg PO DAILY [facility] Stop: 12/01/18 09:01 Last Admin: 06/01/18 08:52 Dose: 60 mg Labetalol HCl (Labetalol) 10 mg IVP Q4H PRN PRN Reason: Hypertension Stop: 11/30/18 19:01 Loratadine (Claritin) 10 mg PO DAILY [facility] Stop: 12/01/18 09:01 Last Admin: 06/01/18 08:52 Dose: 10 mg Metoprolol Tartrate (Lopressor) 50 mg PO BID [facility] Stop: 11/30/18 21:01 Last Admin: 06/01/18 08:52 Dose: 50 mg Naloxone HCl (Narcan) 0.4 mg IVP Q2MIN PRN PRN Reason: SEE COMMENTS Stop: 11/30/18 09:38 Nitroglycerin (Nitroglycerin) 0.4 mg SL Q5MIN PRN PRN Reason: Chest Pain Stop: 11/30/18 08:24 Last Admin: 05/31/18 08:52 Dose: 0.4 mg Omeprazole (Prilosec) 40 mg PO DAILY [facility] Stop: 12/01/18 09:01 Last Admin: 06/01/18 08:53 Dose: 40 mg Oxycodone HCl (Roxicodone) 10 mg PO Q6HR PRN PRN Reason: Severe Pain Stop: 11/30/18 09:38 Last Admin: 06/01/18 05:52 Dose: 10 mg Vitamin D (Vitamin D) 1,000 unit PO DAILY [facility] Stop: 12/01/18 09:01 Last Admin: 06/01/18 08:52 Dose: 1,000 unit - Imaging and Cardiology Stress Test: report reviewed Echo: report reviewed Cardiac cath: report reviewed - EKG Interpretation EKG results cardiology: personally reviewed, other (12 hr tele aVG HR 88, SR with PVCs, but no NSVT noted.) Consult Discharge Plan - Plan Instructions: Metoprolol (By mouth), Aspirin (By mouth), Oxycodone, Rapid Release (By mouth), Chest Pain (DC), Diabetes Mellitus Type 2 in Adults (DC), Chronic Hypertension (DC), Anemia (GEN) Additional Instructions: Metoprolol increased to 100mg BID SCript for walker provided Outpatient MRI L shoulder and PT/OT Declines home health service Referrals: Jaja Parrish MD [Primary Care Provider] - (please call tomorrow to make a follow-up appointment for 5-7 days) Obie Horne CNP [Advanced Practice Nurse] - (cardiology to call with appointment.) Prescriptions: Aspirin 81 mg PO DAILY #30 tab.chew Metoprolol [Lopressor] 100 mg PO BID #120 tablet Oxycodone HCl 5 mg PO Q6H PRN 3 Days #12 tablet PRN Reason: Breakthrough Pain <Josh Kaplan - Last Filed: 06/01/18 16:48> Date of Encounter: 06/01/18 - Attending Attestation Patient was discharged before seen by me. Case was discussed with me. Agree with nurse practitioner's/resident's documentation. Addition as follows, A:MSK pain, CAD no angina, short NSVTs P: Increase BB. F/u cardiology clinic. Josh Kaplan MD, PhD Josh Kaplan MD, PhD Assessment and Plan Discussion w patient/family: The assessment and plan as outlined above was discussed with the patient and/or family members who expressed understanding and agreement. All questions were answered. Thank you for involving us in the care of your patient. Please call with any questions. History of Present Illness History of present illness: Mr. Linder is a 77 year old male All Systems Review: The remainder of the systems were reviewed and are negative Results 06/01/18 09:17 06/01/18 09:17 Lab Results 06/01/18 06/01/18 09:17 09:17 WBC 8.8 Hgb 15.4 Hct 48.1 Plt Count 240 Sodium 131 L Potassium 4.8 Chloride 95 L Carbon Dioxide 24 BUN 35 H Creatinine 1.95 H Glucose 401 H Calcium 9.2 Magnesium 2.0
[2018-06-01 10:07] LABS: Calcium 9.2 mg/dL (8.6-10.3); Potassium 4.8 mEq/L (3.5-5.1)
[2018-06-01] MEDS ORDERED: Aspirin 81 MG TAB.CHEW PO SCH (11:30)
--- NOTE | 2018-06-01 11:36 | Discharge Summary ---
- NOTES TO OUTPATIENT PROVIDER Notes to Outpatient Provider: Patient with history of CAD status post CABG was admited for L shoulder pain refractory to Percocet . Also had a few runs of nonsustained ventricular tachycardia. Initially concerning for ACS but serial troponins were negative and Echocardiogram was unremarkable. Recent stress test WNL in 04/2018. Likely due to MSK cause, will need outpatient MRI L shoulder and follow up with orthopedics if needed. Will also benefit from outpatient PT/OT. He will also get PRN oxycodone for breakthrough pain not relieved by Percocet. Orders not resulted at time of discharge: Pending orders 06/01/18 07:24 MR shoulder LT wo con [MR] Stat Date of Encounter: 06/01/18 Time of Encounter: 09:45 - Discharge Diagnosis (1) Shoulder pain, left Priority: Primary Status: Acute Qualifiers: Chronicity: acute Qualified Code(s): M25.512 - Pain in left shoulder (2) V-tach Priority: Secondary Status: Acute (3) CAD (coronary artery disease) Priority: Secondary Status: Chronic Qualifiers: Coronary Disease-Associated Artery/Lesion type: [place] artery [place] vs. transplanted heart: [place] heart Associated angina: angina presence unspecified Qualified Code(s): I25.10 - Atherosclerotic heart disease of [place] coronary artery without angina pectoris (4) Diabetes Priority: Secondary Status: Chronic Qualifiers: Diabetes mellitus type: type 2 Diabetes mellitus senior care insulin use: with senior care use Diabetes mellitus complication status: with unspecified complications Qualified Code(s): E11.8 - Type 2 diabetes mellitus with unspecified complications; Z79.4 - USP (current) use of insulin (5) CKD (chronic kidney disease) stage 3, GFR 30-59 ml/min Priority: Secondary Status: Chronic (6) DVT prophylaxis Priority: Secondary Status: Acute Hospital course: Mr. Linder is a 77 year old male with history of CAD status post CABG who was admitted for L shoulder pain. Also had a few runs of nonsustained ventricular tachycardia. Initially concerning for ACS but serial troponins were negative and Echocardiogram was unremarkable. Recent stress test WNL in 04/2018. Likely due to MSK cause, will need outpatient MRI L shoulder and follow up with orthopedics if needed. Will also benefit from outpatient PT/OT. Discharge discussed with: patient, family, nurse - Time Spent with Patient Total time spent providing and/or coordinating discharge services: 25 mins - Discharge Medications Prescriptions: RX: Aspirin 81 mg PO DAILY #30 tab.chew RX: Metoprolol [Lopressor] 100 mg PO BID #120 tablet RX: Oxycodone HCl 5 mg PO Q6H PRN 3 Days #12 tablet PRN Reason: Breakthrough Pain Home Medications: RX: Cetirizine HCl [24Hour Allergy] 10 mg PO DAILY 02/15/16 [History] RX: Gabapentin [Neurontin] 800 mg PO TID 02/15/16 [History] RX: Gemfibrozil [Lopid] 600 mg PO BIDWM 02/15/16 [History] RX: Omeprazole [PriLOSEC] 40 mg PO DAILY 02/15/16 [History] RX: OxyCODONE/APAP 10/325 [Percocet 10/325 MG] 1 each PO Q4HR PRN 02/15/16 [History] RX: glipiZIDE [Glipizide] 10 mg PO BID 02/15/16 [History] RX: Cholecalciferol (D-3) [Vitamin D] 5,000 unit PO DAILY 05/12/16 [History] RX: Bumetanide [Bumex] 1 mg PO QPM PRN 03/11/17 [History] RX: Bumetanide [Bumex] 2 mg PO QAM PRN 03/11/17 [History] RX: Insulin Pump Cartridge [Insulin Pump] 0 unit SQ AD 05/31/18 [History] RX: Insulin Regular, Human [Novolin R] 0 unit SQ AD 05/31/18 [History] RX: Isosorbide MONOnitrate (24 HR) [Imdur] 60 mg PO DAILY 05/31/18 [History] RX: Aspirin 81 mg PO DAILY #30 tab.chew 06/01/18 [Rx] RX: Metoprolol [Lopressor] 100 mg PO BID #120 tablet 06/01/18 [Rx] RX: Oxycodone HCl 5 mg PO Q6H PRN 3 Days #12 tablet 06/01/18 [Rx] Allergies/Adverse Reactions: Allergy/AdvReac Type Severity Reaction Status Date / Time No Known Allergies Allergy Verified 05/31/18 07:14 Date of admission: 05/31/18 15:48 Primary care physician: Jaja Parrish Consults: 05/31/18 09:04 Consult to Cardiology [CONS] Stat Comment: Consulting Provider: Cardiology Padmini Reason for Consult: Exertional dyspnea, angina, unsustained V. tach Call Completed: Yes - Constitutional Vitals: Temp Pulse Resp BP Pulse Ox 97.7 F 88 18 166/98 94 06/01/18 06:46 06/01/18 06:46 06/01/18 06:46 06/01/18 06:46 06/01/18 06:46 Exam: General: Alert and oriented, obese male not in acute distress. Cardiovascular:Normal S1 & S2, No JVD. Pulse regular. No chest wall tenderness Lungs: clear to auscultation, no wheezes/rales Abdomen:Soft, non-tender, no rigidity. Extremities: No obvious effusion on left shoulder, point tenderness on left acromion process noted. Range of motion limited due to discomfort. Neurological:Normal cognition and motor skills. Non-focal - Patient Status Disposition: Home, Self-Care Condition: Fair Overall status at discharge: patient is progressing back to baseline - Discharge Instructions Instructions: Chronic Hypertension (DC), Diabetes Mellitus Type 2 in Adults (DC) Follow Up With: Jaja Parrish MD [Primary Care Provider] - (please call tomorrow to make a follow-up appointment for 5-7 days) Additional Instructions: Metoprolol increased to 100mg BID SCript for walker provided Outpatient MRI L shoulder and PT/OT Declines home health service - Diet and Activity Activity: resume usual activities as tolerated Diet: diabetic diet
[2018-06-01 11:41] VITALS: BP 137/81
--- NOTE | 2018-06-02 16:38 | Electrocardiograph Report ---
[place] [id number] Test Date: 2018-05-31 Pat Name: Shyam Linder Department: [id number] Room: 2NE19 Gender: M Supervisor Beam Department: : 1940 Requested By: Verna De La Cruz Order Number: [id number] Reading MD: Clifton Elliott Measurements Intervals Irene Rate: 93 P: 65 MI: 175 QRS: 62 QRSD: 96 T: 93 QT: 382 QTc: 476 Interpretive Statements Sinus rhythm Ventricular premature complex Minimal ST depression, lateral leads Borderline prolonged QT interval Electronically Signed On 06-02-2018 16:37:19 EST by Clifton Elliott
== END 2018-06-01 14:50 | disposition home or self-care (01) ==
LOC: 2NENU 07:12 → EMEROOARM 07:12 → 2NENU 16:49
PROVIDERS: ADMIT Internal Medicine; ATTEND Internal Medicine

== ENCOUNTER 2018-08-31 06:04 | Inpatient (IN) ==
[2018-08-31] MEDS ORDERED: CeFAZolin Syr 2,000MG/20 ML 2,000 MG/20 ML SYRINGE IVPB ONE (06:34)
[2018-08-31] MEDS ORDERED: Ringers Solution, Lactated 1,000 ML IVC SCH (06:45)
[2018-08-31] MEDS ORDERED: *HR* Remifentanil 1 MG VIAL IVP ONE ×2 (06:58→10:14)
[2018-08-31] MEDS ORDERED: *HR* Propofol 200 MG/20 ML VIAL IVP ONE ×2 (06:58→10:55)
[2018-08-31] MEDS ORDERED: *HR* FentaNYL (PF) 100 MCG/2 ML VIAL ONE (06:58)
[2018-08-31] MEDS ORDERED: Propofol 500 MG/50 ML INFUS..BTL ONE ×2 (07:11→08:27)
--- NOTE | 2018-08-31 07:13 | Anesthesia Evaluation PreOp ---
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 History: Denies Any Significant HX Other Medical History: Renal (CKD3, SINGLE KIDNEY, POST NEPHRECTOMY FOR RENAL CELL CA), Other (prostate CA) Anesthesia History: No Prior Anesthetic Complications, Past Anesthesia (L-Knee scope, LEFT ROTATOR CUFF TEAR, EGD) Alcohol Use: rarely Drug use: none Medications and Allergies OxyCODONE/APAP 10/325 [Percocet 10/325 MG] 1 each PO Q4HR PRN 02/15/16 [History] glipiZIDE [Glipizide] 10 mg PO BID 02/15/16 [History] Cholecalciferol (D-3) [Vitamin D] 5,000 unit PO DAILY 05/12/16 [History] Insulin Regular, Human [Novolin R] 0 unit SQ TID 05/31/18 [History] Isosorbide MONOnitrate (24 HR) [Imdur] 60 mg PO DAILY 05/31/18 [History] Aspirin 81 mg PO DAILY #30 tab.chew 06/01/18 [Rx] Gabapentin [Neurontin] 100 mg PO TID #90 capsule 06/05/18 [Rx] Diltiazem 240 mg PO DAILY 08/31/18 [History] Gemfibrozil [Lopid] 300 mg PO DAILY 08/31/18 [History] Omeprazole [PriLOSEC] 40 mg PO DAILY 08/31/18 [History] Simvastatin [Zocor] 80 mg PO DAILY 08/31/18 [History] Allergy/AdvReac Type Severity Reaction Status Date / Time No Known Allergies Allergy Verified 05/31/18 07:14 - Meds/Allergy Pre-op Review Medications Reviewed: Yes Allergies Reviewed: Yes Beta Blockers on Current Med List: No Anesthesia Results - Labs Laboratory Tests 08/26/18 08/26/18 08/26/18 10:50 10:50 10:50 WBC 7.7 Hgb 12.5 L Hct 38.9 Plt Count 263 INR 1.0 Sodium 138 Potassium 4.5 Chloride 103 Carbon Dioxide 27 BUN 27 H Creatinine 1.52 H - Imaging EKG: report reviewed (Sinus rhythym with PACs and PVCs NONSPECIFIC T-WAVE ABNORMALITY Electronically Signed On 06-07-2018 13:48:51 EST by Josh Kaplan) Additional studies: Echo with Imaging Enhancement Agent Name: Shyam Linder Date of Study: 05/31/2018 EV/EV echocardiogram w enhance Impressions: LVEF 70-75%, hyperdynamic LV. Normal LV chamber size, wall thickness and systolic function. Mild left ventricular diastolic dysfunction. Normal right ventricular structure and function. No significant valvular dysfunction. Unable to estimate RVSP due to lack of TR jet. Anesthesia Exam O2 Sat Height 1.73 m Height 1.73 m Weight 112.945 kg Weight 112.945 kg O2 Sat by Pulse Oximetry 91 Vital Signs Temp Pulse Resp BP Pulse Ox 98.8 F 67 18 99/58 91 08/31/18 06:58 08/31/18 06:58 08/31/18 06:58 08/31/18 06:58 08/31/18 06:58 NPO (# of Hours): > 8 hrs Pain Scale: 0 Pain Scale Used: Numeric (1 - 10) - HEENT Pupil (Motor): Pupils equal, EOMI Mallampati: III Teeth: Normal Oral Opening: Greater than 3 - RAILROAD FIRER LOC: Oriented RAILROAD FIRER Motor: Normal RUE, Normal LUE, Normal RLE, Normal LLE, Normal Face RAILROAD FIRER Sensory: Normal: RUE, LUE, RLE, LLE, Face - Cardiac Rhythm: Regular Murmur: None JVD: No Carotid Bruit: No - Pulmonary Breath Sounds: bilateral Clear Respiratory Effort: Symmetrical - Additional Findings last sublingual Nitro 8 months ago, no chest pains since. Anesthesia Assess/Plan ASA Score: 3 Level of consciousness: Cooperative Anesthetic Plan: General Autologous Blood: Yes Monitoring Plan: Standard Monitors, A-Line Recovery Plan: PACU
[2018-08-31] MEDS ORDERED: *HR* Phenylephrine 10 MG/ML VIAL ONE (07:15)
--- NOTE | 2018-08-31 07:33 | History & Physical Report ---
Date of Encounter: 08/31/18 Time of Encounter: 07:32 24 Hour HP Update - Instructions Instructions: If the History and Physical is less than 30 days old and was completed prior to A.M. admission and or procedure and has NOT been updated on calendar day of procedure please complete this update prior to performing procedure. - Update Patient reports changes in Medical Condition: No Changes in examination, assessment, or condition: No Changes in Medication: No Preop tests/diagnostics Reviewed: Yes Pre-Op MRSA Screen: Negative Surgery Remains Indicated: Yes Consent for Planned Operative Procedure(s) Verified: Yes - Pre-Operative Checklist Preoperative Checklist Indicated: No Prophylactic Antibiotic Ordered: Yes Home Medications Include Beta Dario: No Beta Dario Taken Today (Day of Surgery): No Beta Dario Taken Yesterday (Day Prior to Surgery): No Is VTE Prophylaxis Indicated?: Yes
[2018-08-31] MEDS ORDERED: Heparin 1,000 UNITS/500 mL 0 ML ONE (07:37)
[2018-08-31] MEDS ORDERED: *HR* Heparin 5,000 UNIT/ML VIAL ONE (07:37)
[2018-08-31] MEDS ORDERED: *HR* Promethazine 25 MG/ML VIAL IVP PRN (07:40)
[2018-08-31] MEDS ORDERED: *HR* Labetalol 20 MG/4 ML SYRINGE IVP PRN (07:40)
[2018-08-31] MEDS ORDERED: Ondansetron 4 MG/2 ML VIAL IVP ONE (07:40)
[2018-08-31] MEDS ORDERED: *HR* OxyCODONE Immed Rel 5 MG TABLET PO PRN (07:40)
[2018-08-31] MEDS ORDERED: Bacitracin 50,000 UNIT, Polymyxin B Sulfate 500,000 UNIT, Sodium Chloride IRRigation 1,... IR ONE (07:45)
[2018-08-31] MEDS ORDERED: EPHEDrine 50 MG/ML VIAL ONE (08:04)
[2018-08-31] MEDS ORDERED: Acetaminophen IV 1,000 MG/100 ML INFUS..BTL ONE (08:22)
--- NOTE | 2018-08-31 11:06 | Orthopedic Operative Note ---
Date of procedure: 08/31/18 Pre-op diagnosis: Cervical stenosis, cervical myelopathy Post-op diagnosis: same Operation/Findings: Anterior cervical decompression fusion C4-C7: The patient was brought to the operating room and placed supine on the operating room table. Successful general endotracheal anesthesia intubation was performed. Neurophysiologic monitoring personnel placed leads on the upper and lower extremities as well as the cranium for EMG monitoring purposes. Appropriate baseline potentials were noted by the neurophysiologic monitoring staff. Monet catheter was placed prior to positioning. Compression boots and stockings were placed for deep vein thrombosis prophylaxis. Padding was also placed all bony prominences including the ulnar nerve near the medial epicondyles of the elbows were appropriately padded. Mild traction was placed on the bilateral shoulders and taped into place. Preoperative antibiotics were administered. The area from the mandible bilaterally to the upper thoraces was prepped and draped in the usual sterile fashion. An oblique incision was made at the level of the cricoid cartilage which is approximately 3 cm in length and extended from the midline of the cervical spine laterally towards the sternocleidomastoid muscle on the left. It was 1 cm medial and parallel to the sternocleidomastoid muscle on the left. We then performed standard medial approach to the carotid sheath. Sponges were used to tease the fascial medial to the sternocleidomastoid muscle while carefully controlling and palpating the carotid artery. Using careful dissection we were able to get to the level of the anterior vertebral bodies and longus coli muscles. The spinal needle was placed at the appropriate C4-5 level, and intraoperative radiograph was obtained which was a cervical spine lateral radiograph. The needle and radiograph confirmed we were at the correct C4-5 operative level. We further exposed this level by using Bovie cautery under the medial edge of the longus colli muscles to allow them to be retracted approximately 2 mm laterally on each side. An 11 blade was used to perform anterior discectomy at the appropriate C4-5 level after an initial annulotomy of the anterior longitudinal ligament and annulus was performed. Further disc material was removed with pituitary Rongeurs. Subsequently, Synthes pins were placed at the C4 and C5 vertebral bodies respectively to provide distraction. We then used a Trimline cervical retractor which was placed in both medial and lateral as well as inferior superior direction to allow full visualization of the appropriate C4-5 disc and C4 and C5 vertebral bodies. The Leica microscope was brought to the field and the remainder of the procedure was performed under the guidance of this microscope. Using pituitary rongeurs and small curettes, various micro-instruments, a full discectomy was performed at the appropriate C4-C5 level. The posterior longitudinal ligament was encountered and appeared partially calcified. A portion of this ligament was removed. After complete and thorough discectomy and removal of spondylitic material was performed the endplates of the C4 and C5 vertebral bodies were prepared with a bur until allow bleeding of cancellous bone. A 7mm trial graft was evaluated and appeared to fit quite well within the excised C4-5 disc space. A cortico-cancellous allograft of 7 mm was utilized, carefully tapped into place within the excised disc space with the aid of a bone tamp. It was seated approximately 2 mm from the anterior edge of the cortex of the adjacent vertebral bodies. We then turned our attention to the C5-6 level where a similar series of procedures was performed including discectomy, removal of spondylitic material, end plate preparation, and trial grafting. A 7mm trial fit well within the C5-6 disc space. A 7 mm allograft was then placed at C5-6. We then turned our attention to the C6-7 level. Again, we did a discectomy and decompression, removing spondylitic material, prepared the endplates, and trial graft it. Ultimately, after trialing a 7 mm cortico-cancellus allograft was placed at C6-7. A cervical plate was then placed on the anterior aspect of the C4, C5, C6, and C7 vertebral bodies. The plate was placed in the midline position after drilling eight 13 mm self tapping screws and inserting them. They were locked in place using standard Venture plate maneuvers. At this point a lateral radiograph of the cervical spine was obtained and showed satisfactory position of the graft and plate. The wound was copiously irrigated and bleeders encountered were cauterized using Bovie cautery. Platysma was closed with interrupted 2-0 Vicryl sutures. Running 3-0 Monocryl suture was used for skin closure. Sterile dressing was placed over the neck wound. A cervical collar was placed. The patient was transferred to a hospital bed and extubated. The patient was noted to be fully motor and sensory intact in the recovery room at the end of the procedure. The medications. All sponge instrument and needle counts were correct at the end of the procedure. Anesthesia: GETA Surgeon: Derrick Fuller Jr Was there an inventory control assistant present: No Estimated blood loss (cc): 30 Specimen: None Condition: stable Disposition: PACU
[2018-08-31] MEDS ORDERED: *HR* HYDROMORPHONE 2 MG/ML VIAL ONE (11:18)
[2018-08-31] MEDS: *HR* HYDROmorphone (PF) 1 MG/ML SYRINGE IVP PRN ×2 (11:48→11:54)
[2018-08-31] MEDS ORDERED: Naloxone 0.4 MG/ML INJ IVP PRN (12:57)
[2018-08-31] MEDS ORDERED: Acetaminophen 325 MG TABLET PO PRN (12:57)
[2018-08-31] MEDS ORDERED: Ondansetron 4 MG/2 ML VIAL IVP PRN (12:57)
[2018-08-31] MEDS ORDERED: Insulin LISPRO 300 UNITS/3 ML VIAL SQ SCH ×3 (16:30→21:00)
[2018-08-31] MEDS: Gabapentin 100 MG CAPSULE PO SCH ×2 (16:57→20:32)
[2018-08-31] MEDS: *HR* OxyCODONE Immed Rel 5 MG TABLET PO PRN (17:07)
[2018-08-31] MEDS: *HR* GlipiZIDE 5 MG TABLET PO SCH (20:32)
[2018-08-31] MEDS: *HR* HYDROcodone/Acet 5/325 mg TABLET PO PRN (20:33)
[2018-08-31] MEDS: Ringers Solution, Lactated 1,000 ML IVC SCH (20:39)
[2018-09-01] MEDS: Ringers Solution, Lactated 1,000 ML IVC SCH (00:16)
[2018-09-01] MEDS: *HR* OxyCODONE Immed Rel 5 MG TABLET PO PRN ×2 (02:59→08:55)
[2018-09-01] MEDS: *HR* HYDROcodone/Acet 5/325 mg TABLET PO PRN ×2 (05:39→11:49)
--- NOTE | 2018-09-01 08:50 | Discharge Summary ---
Orders not resulted at time of discharge: Pending orders 09/01/18 04:59 EKG [ECG 12 lead ECG] [ECG] Stat Date of Encounter: 09/01/18 Time of Encounter: 08:49 - Discharge Diagnosis (1) Cervical stenosis of spine Priority: Primary Status: Chronic (2) Cervical myelopathy Priority: Primary Status: Chronic (3) Status post cervical spinal fusion Priority: Primary Status: Acute - Hospital Course Hospital course: Mr. Linder is a 77 year old male Date of procedure: 08/31/18 Pre-op diagnosis: Cervical stenosis, cervical myelopathy Post-op diagnosis: same Operation/Findings: Anterior cervical decompression fusion C4-C7 The patient had an uneventful postoperative course. Progressed from intravenous analgesic needs to oral analgesic needs only. Remained neurovascularly intact and mobilized satisfactorily. All intraoperative and/or postoperative radiographic studies were satisfactory. Patient is discharged with plan for rehabilitation and follow-up in 2 weeks post discharge on analgesic medication and patient's home medications. - Time Spent with Patient Total time spent providing and/or coordinating discharge services: - Discharge Medications Prescriptions: New OxyCODONE Immed Rel [Roxicodone 5 MG] 5 mg PO Q6HR PRN 5 Days #20 tablet PRN Reason: Severe Pain Continue OxyCODONE/APAP 10/325 [Percocet 10/325 MG] 1 each PO Q4HR PRN PRN Reason: Pain Cholecalciferol (D-3) [Vitamin D] 1,000 unit PO DAILY Insulin Regular, Human [Novolin R] 0 unit SQ TID Isosorbide MONOnitrate (24 HR) [Imdur] 60 mg PO DAILY Aspirin 81 mg PO DAILY #30 tab.chew Simvastatin [Zocor] 80 mg PO DAILY Omeprazole [PriLOSEC] 40 mg PO DAILY Gemfibrozil [Lopid] 300 mg PO DAILY Diltiazem CD (24hr) [Cardizem CD] 240 mg PO 1800 Gabapentin 800 mg PO TID Ondansetron HCl 8 mg PO TID PRN PRN Reason: NAUSEA/VOMITING Home Medications: OxyCODONE/APAP 10/325 [Percocet 10/325 MG] 1 each PO Q4HR PRN 02/15/16 [History] Cholecalciferol (D-3) [Vitamin D] 1,000 unit PO DAILY 05/12/16 [History] Insulin Regular, Human [Novolin R] 0 unit SQ TID 05/31/18 [History] Isosorbide MONOnitrate (24 HR) [Imdur] 60 mg PO DAILY 05/31/18 [History] Aspirin 81 mg PO DAILY #30 tab.chew 06/01/18 [Rx] Gemfibrozil [Lopid] 300 mg PO DAILY 08/31/18 [History] Omeprazole [PriLOSEC] 40 mg PO DAILY 08/31/18 [History] Simvastatin [Zocor] 80 mg PO DAILY 08/31/18 [History] Diltiazem CD (24hr) [Cardizem CD] 240 mg PO 1800 09/01/18 [History] Gabapentin 800 mg PO TID 09/01/18 [History] Ondansetron HCl 8 mg PO TID PRN 09/01/18 [History] OxyCODONE Immed Rel [Roxicodone 5 MG] 5 mg PO Q6HR PRN 5 Days #20 tablet 09/01/18 [Rx] Allergies/Adverse Reactions: Allergy/AdvReac Type Severity Reaction Status Date / Time No Known Allergies Allergy Verified 05/31/18 07:14 Date of admission: 08/31/18 13:49 Primary care physician: Jaja Parrish Consults: 08/31/18 12:57 Consult to Occupational Therapy [CONS] Routine Comment: Evaluate, develop and implement POC Reason for Consult: Postoperative rehabilitation Does patient have active BEDREST order?: No Is patient medically & hemodynamically stable?: Yes Patient assessed for mobility or mobilized this visit?: No Consult to Physical Therapy [CONS] Routine Comment: Evaluate, develop and implement POC Reason for Consult: Postoperative rehabilitation Does patient have active BEDREST order?: No Is patient medically & hemodynamically stable?: Yes Patient assessed for mobility or mobilized this visit?: No Consult to Spine Navigator [CONS] [CONS] Routine Discharging clinician: Derrick Fuller Jr Anticipated date of discharge: 09/01/18 - VTE Documentation of Mechanical Device: Graduated compression elastic hosiery Labs on day of discharge: Labs from last 24 hours 08/31/18 08/31/18 08/31/18 22:19 19:03 18:39 POC Glucose 251 H 370 H 471 H* 08/31/18 08/31/18 16:44 06:49 POC Glucose 306 H 217 H - Impressions ITS Impressions Cervical Spine X-Ray 08/31/18 00:00 IMPRESSION: Markers are at the C3-C4, and C4-C5 levels. Findings were discussed with Derrick Fuller at 9:11 am on 08/31/2018. D/ / 08/31/2018 09:26:27 Carmen Alvarado MD / bcarter Interpreting Provider: Carmen Alvarado MD Cervical Spine X-Ray 08/31/18 00:00 IMPRESSION: 1. The patient's shoulders limit evaluation. 2. Fusion hardware is seen involving the C4 and C5 levels with the distal hardware not visualized. 3. No evidence of hardware complication at the C4 level. D/ / Antonio Byesr MD / Antonio Byers MD Interpreting Provider: Antonio Byers MD - Patient Status Disposition: Home, Self-Care Condition: Good Functional capacity at discharge: uses cane/walker Overall status at discharge: patient is progressing back to baseline - Discharge Instructions Follow Up With: Verna Loredo PAC [Physician Park Attendant] - 09/14/18 10:00 am Jaja Parrish MD [Primary Care Provider] - Derrick Fuller Jr, MD [Partnered Physician] - 12/09/18 4:00 pm Additional Instructions: Discharge Instructions: Cervical Please call [facility] ([phone]), your Primary Care Physician, or report to the ER if you have any of the following symptoms: Fever greater that 101.5, increased pain/redness/drainage/odor for your incision site or any other concerning symptoms. ACTIVITY * May Shower * No Tub Baths * No Smoking * No Swimming * No Driving * Wear Collar when up walking * Incentive Spirometer 10 times an hour MEDICATIONS: Upon discharge resume your home medications. Take all the medications as prescribed. Take a stool softener if taking narcotic pain medications. Stool softeners are only effective if you drink enough fluids. Drink 6-8 glass of water or fluids a day, unless this is not allowed for another health problem. Despite using stool softeners, if you haven't had a bowel movement in 3 days, please switch to a gentle laxative. Gentle laxatives are sold over the counter. You should have a bowel movement within 24 hours, if not call the office. You will be discharged from the hospital with a prescription for pain medication. You are encouraged to decrease the use of narcotic pain medication as tolerated. Should you require a refill, please call the office. It is best to call 48-72 hours in advance of needing a prescription refill so you don't run out of medication. WOUND CARE: Leave steri-strips in place until they fall off on their own. Pat dry when you get out of the shower. FOLLOW-UP: Please follow up with your surgeon in the orthopedic clinic in 2 weeks from the day of surgery. References: [employer] (www.apta.org) - Diet and Activity Activity: as per physical therapy Diet: advance to your usual diet
[2018-09-01] MEDS ORDERED: Isosorbide MONOnitrate (24 HR) 60 MG TAB.ER.24H PO SCH (09:00)
[2018-09-01] MEDS ORDERED: Cholecalciferol (D-3) 1,000 UNIT TABLET PO SCH (09:00)
[2018-09-01] MEDS ORDERED: Aspirin 81 MG TAB.CHEW PO SCH (09:00)
[2018-09-01] MEDS ORDERED: Diltiazem CD (24hr) 240 MG CAPSULE PO SCH (09:00)
[2018-09-01] MEDS: Gabapentin 100 MG CAPSULE PO SCH (09:05)
[2018-09-01] MEDS: *HR* GlipiZIDE 5 MG TABLET PO SCH (09:05)
[2018-09-01] MEDS: Insulin LISPRO 300 UNITS/3 ML VIAL SQ SCH ×2 (09:06→12:56)
[2018-09-01 11:29] VITALS: BP 131/75
== END 2018-09-01 16:06 | disposition home or self-care (01) | DRG 472 ==
LOC: SAMDAY 06:04 → 3NENU 13:49
PROVIDERS: ADMIT Orthopaedic Surgery Orthopaedic Surgery of the Spine; ATTEND Orthopaedic Surgery Orthopaedic Surgery of the Spine

== ENCOUNTER 2019-03-02 11:03 | Observation (INO) ==
--- NOTE | 2019-03-02 11:37 | Emergency Department Note ---
Disposition Clinical Impression: Shortness of breath Disposition: Admitted As Inpatient Condition: Fair Referrals: Jaja Parrish MD [Primary Care Provider] - Time of Disposition: 13:38 SOB HPI - General Chief Complaint: ED Shortness of Breath/Dyspnea Stated Complaint: VIJAY, Time Seen by Provider: 03/02/19 11:08 Source: patient Mode of arrival: ambulatory Limitations: no limitations Nursing Notes Reviewed: Yes Vital Signs Reviewed: Yes - History of Present Illness Patient is a 78-year-old male with a past medical history of hypertension, diabetes, hyperlipidemia, coronary artery disease, [id number] in 2014 who came to the emergency department with several episodes of shortness of breath previous night. He typically has shortness of breath that worsens with exertion, however the patient says that the episodes of shortness of breath that he has had today feel different from his typical. 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 Diego. He denied having any chest pain, diaphoresis, syncope. No nausea, vomiting, fevers, chills. No abdominal pain, constipation, diarrhea. Patient was primarily concerned because he had similar symptoms when he first had his CABG. He otherwise denies any recent travel, surgeries/hospitalizations. Does use testosterone shots. He does have a remote history of cancer, however he is in remission. Patient had an abnormal stress test and was scheduled to have another heart catheterization on February 07. He denies any lower extremity edema or shortness of breath with positional changes. Is currently on aspirin. - Related Data Home Medications Medication Instructions Recorded Confirmed OxyCODONE/APAP 10/325 [Percocet 1 each PO Q4HR PRN 02/15/16 03/02/19 10/325 MG] Cholecalciferol (D-3) [Vitamin D] 1,000 unit PO DAILY 05/12/16 03/02/19 Isosorbide MONOnitrate (24 HR) 60 mg PO DAILY 05/31/18 03/02/19 [Imdur] Gemfibrozil [Lopid] 300 mg PO DAILY 08/31/18 03/02/19 Omeprazole [PriLOSEC] 40 mg PO DAILY 08/31/18 03/02/19 Simvastatin [Zocor] 40 mg PO DAILY 08/31/18 03/02/19 Diltiazem CD (24hr) [Cardizem CD] 240 mg PO 1800 09/01/18 03/02/19 Gabapentin 400 mg PO TID 09/01/18 03/02/19 Ondansetron HCl 8 mg PO TID PRN 09/01/18 03/02/19 Bumetanide 1 mg PO 1300 03/02/19 03/02/19 Bumetanide 2 mg PO QAM 03/02/19 03/02/19 Donepezil HCl [Aricept] 5 mg PO DAILY 03/02/19 03/02/19 GlipiZIDE [Glucotrol] 10 mg PO BIDWM 03/02/19 03/02/19 Naloxegol Oxalate [Movantik] 12.5 mg PO DAILY 03/02/19 03/02/19 Subcutaneous Insulin Pump [T:Slim] 1 each MC AD 03/02/19 03/02/19 Previous Rx's Medication Instructions Recorded Aspirin 81 mg PO DAILY #30 tab.chew 06/01/18 Allergies Allergy/AdvReac Type Severity Reaction Status Date / Time No Known Allergies Allergy Verified 05/31/18 07:14 All systems ED: reviewed and negative except as stated. Review of Systems: As Per HPI Constitutional: Denies: fever, chills, weakness Eyes: Denies: eye pain, eye discharge, vision change ENT ED: Denies: throat pain, dental pain, congestion Cardiovascular: Denies: chest pain, palpitations, dyspnea on exertion, syncope Respiratory: Denies: cough, dyspnea, wheezes Gastrointestinal: Denies: abdominal pain, nausea, vomiting Genitourinary: Denies: urgency, dysuria, frequency Musculoskeletal: Denies: back pain, neck pain, joint swelling Integumentary: Denies: rash, abrasion, lesions Neurological: Denies: headache, weakness, numbness Psychiatric: Denies: suicidal thoughts Endocrine: Denies: fatigue, heat or cold intolerance, polydipsia Past Medical History - Past Medical History Attestation: Yes The following information was validated with the patient. Source: patient Medical history: Reports: cancer, coronary artery disease, diabetes, hyperlipidemia, hypertension, myocardial infarction, renal disease, other Surgical history: Reports: cancer surgery, coronary bypass (CABG), orthopedic, other, prostatectomy, other Psychiatric history: Reports: no psych history - Social History Smoking Status: Former smoker Smokeless Tobacco Status: No Alcohol use: Reports: rarely Drug use: Reports: none Physical Exam GEN: Well-appearing, NAD, conversant. HEAD: Normocephalic, atraumatic. EYES: PERRL, EOMI, anicteric. ENT: MMM. oropharynx without erythema or drainage. NECK: Supple. No LAD. No stiffness or restricted ROM. No tracheal deviation. HEART: Regular rate and regular rhythm, normal S1/S2, no m/r/g. LUNGS: CTAB, good air exchange bilaterally. No wheezing, rubs, or rhonchi. ABDO: Soft, nontender, nondistended with active bowel sounds. : No suprapubic tenderness or CVA tenderness. BACK: No obvious stepoffs or deformities. EXT: Without cyanosis, clubbing or edema. SKIN: Warm and dry without any rash. NEURO: Grossly nonfocal. Alert and oriented, moving all 4 extremities. CN not formally tested but appear grossly intact. PSYCH: Normal affect, no depressed or anxious mood. - General Limitations: no limitations General appearance: alert Course Course Narrative: Patient was seen and examined. Patient's vitals were normal. Patient was not hypoxic and afebrile. CBC, CMP, troponin, EKG, chest x-ray were obtained. Vital Signs Temperature 97.5 F L 03/02/19 11:06 Pulse Rate 69 03/02/19 11:06 Respiratory Rate 20 03/02/19 11:06 Blood Pressure 128/65 03/02/19 11:06 O2 Sat by Pulse Oximetry 95 03/02/19 11:06 Temperature 98.0 F 03/02/19 14:54 Pulse Rate 67 03/02/19 14:54 Respiratory Rate 16 03/02/19 14:54 Blood Pressure 147/71 03/02/19 14:54 O2 Sat by Pulse Oximetry 95 03/02/19 14:54 Oxygen Delivery Oxygen Delivery Nasal Cannula Shortness of Breath/Dyspnea - MDM Narrative Medical decision making narrative: Patient is a 78-year-old male who presented with multiple episodes of dyspnea. He has a history of CABG 2. As well as other cardiac risk factors including coronary artery disease, hypertension, diabetes. Plan is to admit him for further cardiac workup. EKG was nonischemic. Troponin was negative. Low suspicion for PE given the patient was not tachycardic or hypoxic upon arrival. Chest x-ray was unremarkable for any acute cardiopulmonary process. Given that the patient had an abnormal stress test previously and was going to have a scheduled heart catheterization. Decided that patient would benefit from admission and further workup for symptoms of shortness of breath. Cardiology was consulted for further medication/intervention and is given. Patient was communicated to medicine for admission. - Medical Records Medical records reviewed: Yes I reviewed the patient's medical records. - Lab Data Lab results reviewed: Yes I reviewed the patient's lab results. Result diagrams: 03/02/19 11:56 03/02/19 11:56 Lab Results 03/02/19 03/02/19 03/02/19 Range/Units 11:56 11:56 11:56 WBC 8.4 (4.3-11.1) K/mcL RBC 4.17 L (4.19-5.50) M/mcL Hgb 11.7 L (12.9-16.9) g/dL Hct 37.2 L (37.5-50.1) % MCV 89.2 (83.0-100.0) fL MCH 28.1 (28.0-33.3) pg MCHC 31.5 L (31.6-35.5) g/dL RDW 14.2 (11.5-14.5) % Plt Count 293 (140-400) K/mcL MPV 10.5 (9.4-12.4) fL Immature Gran % 0.4 (0-4) % Seg Neutrophils % 56.2 % Lymphocytes % 32.5 % Monocytes % 7.8 % Eosinophils % 2.3 % Basophils % 0.8 % Neutrophils # 4.7 (1.6-8.9) K/mcL Lymphocytes # 2.7 (0.6-4.6) K/mcL Monocytes # 0.7 (0.0-1.3) K/mcL Eosinophils # 0.2 (0.0-0.6) K/mcL Basophils # 0.1 (0.0-0.2) K/mcL PT 11.5 (9.4-12.1) Seconds INR 1.0 APTT 19.6 L (26.0-36.0) Seconds Sodium 136 (136-145) mEq/L Potassium 4.8 (3.5-5.1) mEq/L Chloride 104 (98-107) mEq/L Carbon Dioxide 24 (23-29) mEq/L BUN 29 H (8-23) mg/dL Creatinine 1.87 H (0.70-1.30) mg/dL Est GFR ( Amer) 43 L (> 60) Est GFR (Non-Af Amer) 35 L (> 60) BUN/Creatinine Ratio 16 (6-26) Glucose 335 H (70-105) mg/dL POC Glucose (70-99) mg/dL Calculated Osmolality 301 H (280-300) Calcium 8.7 (8.6-10.3) mg/dL Magnesium 1.9 (1.6-2.6) mg/dL Total Bilirubin 0.3 (0.3-1.0) mg/dL AST 13 (13-39) Units/L ALT 14 (7-52) Units/L Alkaline Phosphatase 55 (34-104) Units/L Troponin I < 0.03 (< 0.04) ng/mL B-Natriuretic Peptide (Less than 100) pg/mL Serum Total Protein 6.6 (6.4-8.9) g/dL Albumin 3.8 (3.5-5.7) g/dL Globulin 2.8 (2.4-3.5) g/dL Albumin/Globulin Ratio 1.4 (1.1-2.2) 03/02/19 03/02/19 03/02/19 Range/Units 11:56 14:54 16:34 WBC (4.3-11.1) K/mcL RBC (4.19-5.50) M/mcL Hgb (12.9-16.9) g/dL Hct (37.5-50.1) % MCV (83.0-100.0) fL MCH (28.0-33.3) pg MCHC (31.6-35.5) g/dL RDW (11.5-14.5) % Plt Count (140-400) K/mcL MPV (9.4-12.4) fL Immature Gran % (0-4) % Seg Neutrophils % % Lymphocytes % % Monocytes % % Eosinophils % % Basophils % % Neutrophils # (1.6-8.9) K/mcL Lymphocytes # (0.6-4.6) K/mcL Monocytes # (0.0-1.3) K/mcL Eosinophils # (0.0-0.6) K/mcL Basophils # (0.0-0.2) K/mcL PT (9.4-12.1) Seconds INR APTT (26.0-36.0) Seconds Sodium (136-145) mEq/L Potassium (3.5-5.1) mEq/L Chloride (98-107) mEq/L Carbon Dioxide (23-29) mEq/L BUN (8-23) mg/dL Creatinine (0.70-1.30) mg/dL Est GFR ( Amer) (> 60) Est GFR (Non-Af Amer) (> 60) BUN/Creatinine Ratio (6-26) Glucose (70-105) mg/dL POC Glucose 253 H (70-99) mg/dL Calculated Osmolality (280-300) Calcium (8.6-10.3) mg/dL Magnesium (1.6-2.6) mg/dL Total Bilirubin (0.3-1.0) mg/dL AST (13-39) Units/L ALT (7-52) Units/L Alkaline Phosphatase (34-104) Units/L Troponin I < 0.03 (< 0.04) ng/mL B-Natriuretic Peptide 69 (Less than 100) pg/mL Serum Total Protein (6.4-8.9) g/dL Albumin (3.5-5.7) g/dL Globulin (2.4-3.5) g/dL Albumin/Globulin Ratio (1.1-2.2) - Radiology Data Radiology results reviewed: Yes I reviewed the patient's radiology results. - EKG Data EKG attestation: Yes I reviewed and interpreted this EKG. EKG results narrative: EKG was obtained and 1118. EKG shows normal sinus rhythm, normal axis, normal intervals, no ST elevations or depressions. T-wave inversion in aVL which is consistent with prior obtained from 02/25/2019. Attestation Statement - Attestation Attestation: I, Dayne De Los Santos DO, examined this patient [id number] and my medical decision-making was reviewed with Sahtish Kontt MD, Resident Physician. I agree with the documented findings, disposition and treatment plan as described except to the extent set forth below. I personally supervised and was present for the cassidy/critical portions of the procedures completed by the resident documented below. Please see my progress notes for details.
--- NOTE | 2019-03-02 11:57 | Emergency Department Note ---
Disposition Clinical Impression: Shortness of breath Disposition: Admitted As Inpatient Condition: Fair Referrals: Jaja Parrish MD [Primary Care Provider] - Forms: ED Satisfaction Letter Time of Disposition: 13:41 General Adult HPI - General Chief complaint: ED Shortness of Breath/Dyspnea Stated complaint: VIJAY, Time Seen by Provider: 03/02/19 11:08 Source: patient Mode of arrival: ambulatory Limitations: no limitations - History of Present Illness Pain Scale: 0 - Related Data Home Medications Medication Instructions Recorded Confirmed OxyCODONE/APAP 10 [Percocet 1 each PO Q4HR PRN 02/15/16 03/02/19 10/325 MG] Cholecalciferol (D-3) [Vitamin D] 1,000 unit PO DAILY 05/12/16 03/02/19 Insulin Regular, Human [Novolin R] 0 unit SQ TID 05/31/18 03/02/19 Isosorbide MONOnitrate (24 HR) 60 mg PO DAILY 05/31/18 03/02/19 [Imdur] Gemfibrozil [Lopid] 300 mg PO DAILY 08/31/18 03/02/19 Omeprazole [PriLOSEC] 40 mg PO DAILY 08/31/18 03/02/19 Simvastatin [Zocor] 40 mg PO DAILY 08/31/18 03/02/19 Diltiazem CD (24hr) [Cardizem CD] 240 mg PO 1800 09/01/18 03/02/19 Gabapentin 400 mg PO TID 09/01/18 03/02/19 Ondansetron HCl 8 mg PO TID PRN 09/01/18 03/02/19 Bumetanide 1 mg PO 1300 03/02/19 03/02/19 Bumetanide 2 mg PO QAM 03/02/19 03/02/19 Donepezil HCl [Aricept] 5 mg PO DAILY 03/02/19 03/02/19 GlipiZIDE [Glucotrol] 10 mg PO BIDWM 03/02/19 03/02/19 Naloxegol Oxalate [Movantik] 12.5 mg PO DAILY 03/02/19 03/02/19 Previous Rx's Medication Instructions Recorded Aspirin 81 mg PO DAILY #30 tab.chew 06/01/18 Allergies Allergy/AdvReac Type Severity Reaction Status Date / Time No Known Allergies Allergy Verified 05/31/18 07:14 Constitutional: Denies: fever, chills, weakness Eyes: Denies: eye pain, eye discharge, vision change ENT ED: Denies: throat pain, dental pain, congestion Cardiovascular: Denies: chest pain, palpitations, dyspnea on exertion, syncope Respiratory: Denies: cough, dyspnea, wheezes Gastrointestinal: Denies: abdominal pain, nausea, vomiting Genitourinary: Denies: urgency, dysuria, frequency Musculoskeletal: Denies: back pain, neck pain, joint swelling Integumentary: Denies: rash, abrasion, lesions Neurological: Denies: headache, weakness, numbness Psychiatric: Denies: suicidal thoughts Endocrine: Denies: fatigue, heat or cold intolerance, polydipsia Past Medical History - Past Medical History Medical history: Reports: cancer, coronary artery disease, diabetes, hyperlipidemia, hypertension, myocardial infarction, renal disease, other Surgical history: Reports: cancer surgery, coronary bypass (CABG), orthopedic, other, prostatectomy, other Psychiatric history: Reports: no psych history - Social History Smoking Status: Former smoker Smokeless Tobacco Status: No Alcohol use: Reports: rarely Drug use: Reports: none Physical Exam - General Limitations: no limitations General appearance: alert Course Vital Signs Temperature 97.5 F L 03/02/19 11:06 Pulse Rate 69 03/02/19 11:06 Respiratory Rate 20 03/02/19 11:06 Blood Pressure 128/65 03/02/19 11:06 O2 Sat by Pulse Oximetry 95 03/02/19 11:06 Temperature 97.5 F L 03/02/19 11:06 Pulse Rate 70 03/02/19 13:39 Respiratory Rate 18 03/02/19 13:39 Blood Pressure 137/62 03/02/19 13:39 O2 Sat by Pulse Oximetry 97 03/02/19 13:39 Oxygen Delivery Oxygen Delivery Nasal Cannula Medical Decision Making - Lab Data Result diagrams: 03/02/19 11:56 03/02/19 11:56 Lab Results 03/02/19 03/02/19 03/02/19 Range/Units 11:56 11:56 11:56 WBC 8.4 (4.3-11.1) K/mcL RBC 4.17 L (4.19-5.50) M/mcL Hgb 11.7 L (12.9-16.9) g/dL Hct 37.2 L (37.5-50.1) % MCV 89.2 (83.0-100.0) fL MCH 28.1 (28.0-33.3) pg MCHC 31.5 L (31.6-35.5) g/dL RDW 14.2 (11.5-14.5) % Plt Count 293 (140-400) K/mcL MPV 10.5 (9.4-12.4) fL Immature Gran % 0.4 (0-4) % Seg Neutrophils % 56.2 % Lymphocytes % 32.5 % Monocytes % 7.8 % Eosinophils % 2.3 % Basophils % 0.8 % Neutrophils # 4.7 (1.6-8.9) K/mcL Lymphocytes # 2.7 (0.6-4.6) K/mcL Monocytes # 0.7 (0.0-1.3) K/mcL Eosinophils # 0.2 (0.0-0.6) K/mcL Basophils # 0.1 (0.0-0.2) K/mcL PT 11.5 (9.4-12.1) Seconds INR 1.0 APTT 19.6 L (26.0-36.0) Seconds Sodium 136 (136-145) mEq/L Potassium 4.8 (3.5-5.1) mEq/L Chloride 104 (98-107) mEq/L Carbon Dioxide 24 (23-29) mEq/L BUN 29 H (8-23) mg/dL Creatinine 1.87 H (0.70-1.30) mg/dL Est GFR ( Amer) 43 L (> 60) Est GFR (Non-Af Amer) 35 L (> 60) BUN/Creatinine Ratio 16 (6-26) Glucose 335 H (70-105) mg/dL Calculated Osmolality 301 H (280-300) Calcium 8.7 (8.6-10.3) mg/dL Magnesium 1.9 (1.6-2.6) mg/dL Total Bilirubin 0.3 (0.3-1.0) mg/dL AST 13 (13-39) Units/L ALT 14 (7-52) Units/L Alkaline Phosphatase 55 (34-104) Units/L Troponin I < 0.03 (< 0.04) ng/mL B-Natriuretic Peptide (Less than 100) pg/mL Serum Total Protein 6.6 (6.4-8.9) g/dL Albumin 3.8 (3.5-5.7) g/dL Globulin 2.8 (2.4-3.5) g/dL Albumin/Globulin Ratio 1.4 (1.1-2.2) 03/02/19 Range/Units 11:56 WBC (4.3-11.1) K/mcL RBC (4.19-5.50) M/mcL Hgb (12.9-16.9) g/dL Hct (37.5-50.1) % MCV (83.0-100.0) fL MCH (28.0-33.3) pg MCHC (31.6-35.5) g/dL RDW (11.5-14.5) % Plt Count (140-400) K/mcL MPV (9.4-12.4) fL Immature Gran % (0-4) % Seg Neutrophils % % Lymphocytes % % Monocytes % % Eosinophils % % Basophils % % Neutrophils # (1.6-8.9) K/mcL Lymphocytes # (0.6-4.6) K/mcL Monocytes # (0.0-1.3) K/mcL Eosinophils # (0.0-0.6) K/mcL Basophils # (0.0-0.2) K/mcL PT (9.4-12.1) Seconds INR APTT (26.0-36.0) Seconds Sodium (136-145) mEq/L Potassium (3.5-5.1) mEq/L Chloride (98-107) mEq/L Carbon Dioxide (23-29) mEq/L BUN (8-23) mg/dL Creatinine (0.70-1.30) mg/dL Est GFR ( Amer) (> 60) Est GFR (Non-Af Amer) (> 60) BUN/Creatinine Ratio (6-26) Glucose (70-105) mg/dL Calculated Osmolality (280-300) Calcium (8.6-10.3) mg/dL Magnesium (1.6-2.6) mg/dL Total Bilirubin (0.3-1.0) mg/dL AST (13-39) Units/L ALT (7-52) Units/L Alkaline Phosphatase (34-104) Units/L Troponin I (< 0.04) ng/mL B-Natriuretic Peptide 69 (Less than 100) pg/mL Serum Total Protein (6.4-8.9) g/dL Albumin (3.5-5.7) g/dL Globulin (2.4-3.5) g/dL Albumin/Globulin Ratio (1.1-2.2) Attestation Statement - Attestation Attestation: I, Dayne De Los Santos DO, examined this patient [id number] and my medical decision-making was reviewed with Sathish Knott MD, Resident Physician. I agree with the documented findings, disposition and treatment plan as described except to the extent set forth below. I personally supervised and was present for the cassidy/critical portions of the procedures completed by the resident documented below. Please see my progress notes for details. 78-year-old male presents emergency room with described 3 episodes of shortness of breath. The most recent one was this morning. They spontaneously resolved on their own without any intervention. Patient does have a history of coronary artery disease at required a two-vessel bypass in 2014. Patient is scheduled for an angiography on the ninth of this coming months secondary to intermittent symptoms and reevaluation. Patient feels like his symptoms at this time are similar to when he needed the CABG in the past. Patient denies any active chest pain shortness of breath fevers chills nausea vomiting or diarrhea at this time. Currently denying any headache or vision change. Patient has not fallen or injured himself. Denies any travel outside the country. He has been compliant with all his medications. Patient did contact cardiology office this morning and recommended come in the emergency room for evaluation. Vital signs are reviewed and are stable. Patient is alert he is oriented he answers questions appropriately. Lungs are clear heart is regular. Abdomen is soft. It is large and obese but otherwise has not changed in presentation. No pitting edema noted. No CVA tenderness. Extremities otherwise normal this time but no significant pitting edema or abnormality. Pulses are intact. Patient is denying any symptoms at this time outside of that he was concerned because of the described issues over last night and this morning. Patient with cardiac evaluation completed with EKG CBC chemistry troponin and BNP. Urinalysis also be added on. Expectation is that the patient will require admission once workup is completed to have the catheterization established and completed during this hospital stay. See detailed documentation of the physical exam, medical intervention, medical decision-making and disposition in the resident physician's documentation. EKG was reviewed by myself and Dr. Galdamez physician's note. No critical care applied the patient's treatment course at this time. 1325 Patient's labs are at baseline this time. Hemoglobin and creatinine are othe rwise unremarkable comparison to previous. Patient symptoms of remained completely unchanged this time. He is denying chest pain or shortness of breath. Patient will be admitted secondary to the concern for cardiology for persistent symptoms as well as recommendation for catheterization coming up in the future. Patient is otherwise stable at this time. The hospitalist Dr. adams reviewed the case at length. No other recommendations or concerns at this point. Patient is otherwise stable. Patient will be monitored here in the emergency department until the admission process is completed.
[2019-03-02 12:36] LABS: White Blood Count 8.4 K/mcL (4.3-11.1)
[2019-03-02 12:37] LABS: Basophils # 0.1 K/mcL (0.0-0.2); Basophils % 0.8 %; Eosinophils # 0.2 K/mcL (0.0-0.6); Eosinophils % 2.3 %; Hematocrit 37.2 % (37.5-50.1); Hemoglobin 11.7 g/dL (12.9-16.9); Immature Granulocytes % 0.4 % (0-4); Lymphocytes # 2.7 K/mcL (0.6-4.6); Lymphocytes % 32.5 %; Mean Corpuscular HGB Conc 31.5 g/dL (31.6-35.5); Mean Corpuscular Hemoglobin 28.1 pg (28.0-33.3); Mean Corpuscular Volume 89.2 fL (83.0-100.0); Mean Platelet Volume 10.5 fL (9.4-12.4); Monocytes # 0.7 K/mcL (0.0-1.3); Monocytes % 7.8 %; Neutrophils # 4.7 K/mcL (1.6-8.9); Platelet Count 293 K/mcL (140-400); Red Blood Count 4.17 M/mcL (4.19-5.50); Red Cell Distribution Width 14.2 % (11.5-14.5); Segmented Neutrophils % 56.2 %
[2019-03-02 12:45] LABS: Prothrombin Time 11.5 Seconds (9.4-12.1)
[2019-03-02 12:48] LABS: Activated Partial Thrombo Time 19.6 Seconds (26.0-36.0)
[2019-03-02 12:56] LABS: Alanine Aminotransferase 14 Units/L (7-52); Albumin 3.8 g/dL (3.5-5.7); Albumin/Globulin Ratio 1.4 (1.1-2.2); Alkaline Phosphatase 55 Units/L (34-104); Aspartate Amino Transferase 13 Units/L (13-39); BUN/Creatinine Ratio 16 (6-26); Bilirubin,Total 0.3 mg/dL (0.3-1.0); Blood Urea Nitrogen 29 mg/dL (8-23); Calcium 8.7 mg/dL (8.6-10.3); Carbon Dioxide 24 mEq/L (23-29); Chloride 104 mEq/L (98-107); Globulin 2.8 g/dL (2.4-3.5); Glucose 335 mg/dL (70-105); Magnesium 1.9 mg/dL (1.6-2.6); Osmolality,Calculated 301 (280-300); Potassium 4.8 mEq/L (3.5-5.1); Sodium 136 mEq/L (136-145); Total Protein 6.6 g/dL (6.4-8.9); Troponin I < 0.03 ng/mL (< 0.04); eGFR For African Americans 43 (> 60); eGFR For Non-African Americans 35 (> 60)
[2019-03-02] MEDS ORDERED: MOM Conc 10 ML UD.LIQ PO PRN (14:02)
[2019-03-02] MEDS ORDERED: Mag Hydrox/Al Hydrox/Simeth 30 ML UDC PO PRN (14:02)
[2019-03-02] MEDS ORDERED: Naloxone 0.4 MG/ML INJ IVP PRN (14:02)
[2019-03-02] MEDS ORDERED: traMADol 50 MG TABLET PO PRN (14:02)
[2019-03-02] MEDS ORDERED: Ondansetron 4 MG/2 ML VIAL IVP PRN (14:02)
[2019-03-02] MEDS ORDERED: Acetaminophen 325 MG TABLET PO PRN (14:02)
[2019-03-02] MEDS ORDERED: *HR* Promethazine 25 MG/ML VIAL IVP PRN (14:02)
[2019-03-02] MEDS ORDERED: D5% in Water 1,000 ML IVC PRN (14:07)
[2019-03-02] MEDS ORDERED: *HR* Dextrose 50 % in Water (Syg) 50 ML SYRINGE IVP PRN (14:07)
[2019-03-02] MEDS ORDERED: Dextrose Gel 15 GM/37.5 ML TUBE PO PRN ×2 (14:07)
--- NOTE | 2019-03-02 14:10 | Internal Med History&Physical ---
Date of Encounter: 03/02/19 Time of Encounter: 14:10 Internal Medicine - H&P: HPI Admitted From: Home Plans for Post Hospital Care: Home History of present illness: Mr. Linder is a 78 year old male with a past medical history of hypertension, diabetes, hyperlipidemia, coronary artery disease, [id number] in 2014 who came to the emergency department with several episodes of shortness of breath on previous night. He typically has shortness of breath that worsens with exertion, however the patient says that the episodes of shortness of breath that he has had today feel different from his typical. 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 Diego. He denied having any chest pain, diaphoresis, syncope. No nausea, vomiting, fevers, chills. No abdominal pain, constipation, diarrhea. Patient was primarily concerned because he had similar symptoms when he first had his CABG. He otherwise denies any recent travel, surgeries/ hospitalizations. Does use testosterone shots. He does have a remote history of cancer, however he is in remission. Patient had an abnormal stress test and was scheduled to have another heart catheterization on February 07. He denies any lower extremity edema or shortness of breath with positional changes. Is currently on aspirin. In the ED, his vital signs were stable. Trop was negative. EKG has no acute st-t changes. He is admitted for further evaluation. Code status discussed with patient, he will be full code. Past Med Surg Social Fam HX - Past Medical History Medical history: cancer, coronary artery disease, diabetes, hyperlipidemia, hypertension, myocardial infarction, renal disease, other Additional medical history: atherosclerotic cardio disease Psychiatric history: no psych history - Past Surgical History Surgical History: cancer surgery, coronary bypass (CABG), orthopedic, other, prostatectomy, other Additional surgical history: rt kidney removed - Social History Smoking Status: Former smoker Smokeless Tobacco Status: No Alcohol use: rarely Drug use: none - Family History Father Living Status: Hx Family Cancer: Yes Mother Living Status: Hx Family Cardiac Disorders: Yes (heart failure) Internal Medicine - H&P: Meds OxyCODONE/APAP 10/325 [Percocet 10/325 MG] 1 each PO Q4HR PRN 02/15/16 [History] Cholecalciferol (D-3) [Vitamin D] 1,000 unit PO DAILY 05/12/16 [History] Insulin Regular, Human [Novolin R] 0 unit SQ TID 05/31/18 [History] Isosorbide MONOnitrate (24 HR) [Imdur] 60 mg PO DAILY 05/31/18 [History] Aspirin 81 mg PO DAILY #30 tab.chew 06/01/18 [Rx] Gemfibrozil [Lopid] 300 mg PO DAILY 08/31/18 [History] Omeprazole [PriLOSEC] 40 mg PO DAILY 08/31/18 [History] Simvastatin [Zocor] 40 mg PO DAILY 08/31/18 [History] Diltiazem CD (24hr) [Cardizem CD] 240 mg PO 1800 09/01/18 [History] Gabapentin 400 mg PO TID 09/01/18 [History] Ondansetron HCl 8 mg PO TID PRN 09/01/18 [History] Bumetanide 1 mg PO 1300 03/02/19 [History] Bumetanide 2 mg PO QAM 03/02/19 [History] Donepezil HCl [Aricept] 5 mg PO DAILY 03/02/19 [History] GlipiZIDE [Glucotrol] 10 mg PO BIDWM 03/02/19 [History] Naloxegol Oxalate [Movantik] 12.5 mg PO DAILY 03/02/19 [History] Allergy/AdvReac Type Severity Reaction Status Date / Time No Known Allergies Allergy Verified 05/31/18 07:14 All Systems PM: A 10-system review of systems was performed and is negative for pertinent findings except as documented above in the HPI. Review of systems: REVIEW OF SYSTEMS: CONSTITUTIONAL: No weight loss, fever, chills, weakness or fatigue. HEENT: Eyes: No visual loss, blurred vision, double vision or yellow sclerae. Ears, Nose, Throat: No hearing loss, sneezing, congestion, runny nose or sore throat. SKIN: No rash or itching. CARDIOVASCULAR: see HPI. RESPIRATORY: No cough or sputum, see HPI. GASTROINTESTINAL: No anorexia, nausea, vomiting or diarrhea. No abdominal pain or blood. GENITOURINARY: No dysuria, urgency, or frequency. NEUROLOGICAL: No headache, dizziness, syncope, paralysis, ataxia, numbness or tingling in the extremities. No change in bowel or bladder control. MUSCULOSKELETAL: No muscle, back pain, joint pain or stiffness. HEMATOLOGIC: No anemia, bleeding or bruising. LYMPHATICS: No enlarged nodes. No history of splenectomy. PSYCHIATRIC: No history of depression or anxiety. ENDOCRINOLOGIC: No reports of sweating, cold or heat intolerance. No polyuria or polydipsia. - Constitutional Vitals: Temp Pulse Resp BP Pulse Ox 97.5 F L 70 18 137/62 97 03/02/19 11:06 03/02/19 13:39 03/02/19 13:39 03/02/19 13:39 03/02/19 13:39 General appearance: Present: A&O X 3 Exam: PHYSICAL EXAMINATION: GENERAL APPEARANCE: The patient is alert, oriented and in no acute distress. HEENT: Head is normocephalic. The sinuses are nontender. Pupils are equal and reactive. The nares are patent. Oropharynx clear without lesions. NECK: Supple without lymphadenopathy. HEART: Regular rate and rhythm. LUNGS: No crackles or wheezes are heard. ABDOMEN: Soft, nontender, nondistended with good bowel sounds heard. Inguinal area is normal. EXTREMITIES: Without cyanosis, clubbing or edema. NEUROLOGICAL: Gross nonfocal. SKIN: Warm and dry without any rash. Internal Med - H&P Results - Labs CBC & Chem 7: 03/02/19 11:56 03/02/19 11:56 Labs: Short CBC 03/02/19 Range/Units 11:56 WBC 8.4 (4.3-11.1) K/mcL Hgb 11.7 L (12.9-16.9) g/dL Hct 37.2 L (37.5-50.1) % Plt Count 293 (140-400) K/mcL Neutrophils # 4.7 (1.6-8.9) K/mcL BMP 03/02/19 11:56 Sodium 136 Potassium 4.8 Chloride 104 Carbon Dioxide 24 BUN 29 H Creatinine 1.87 H Glucose 335 H Calcium 8.7 Cardiac Enzymes 03/02/19 Range/Units 11:56 Troponin I < 0.03 (< 0.04) ng/mL Liver Function 03/02/19 Range/Units 11:56 Total Bilirubin 0.3 (0.3-1.0) mg/dL AST 13 (13-39) Units/L ALT 14 (7-52) Units/L Alkaline Phosphatase 55 (34-104) Units/L Albumin 3.8 (3.5-5.7) g/dL - Impressions ITS Impressions Chest X-Ray 03/02/19 11:52 IMPRESSION: No evidence for acute cardiopulmonary process. D/ / 03/02/2019 11:57:57 Dominic Millan MD / elizabeth mei Interpreting Provider: Dominic Millan MD - Assessment and Plan (1) Shortness of breath Current Visit: Yes Status: Acute Assessment and plan: 78 year old male with CAD s/p CABG presented with dyspnea on exertion. Recent stress test was abnormal. Had worsening sob recently. CTA chest has no acute abnormalities. Cardiology consulted. [facility] likely tomorrow. (2) Diabetes Current Visit: No Status: Chronic Assessment and plan: Hold oral agents, started on insulin sliding scale. Repeat A1c in am. Qualifiers: Diabetes mellitus type: type 2 Diabetes mellitus snf insulin use: without terminal clerk use Diabetes mellitus complication status: with circulatory complication Qualified Code(s): E11.51 - Type 2 diabetes mellitus with diabetic peripheral angiopathy without gangrene (3) CAD (coronary artery disease) Current Visit: No Status: Chronic Assessment and plan: On asa, statins, lopid, Imdur and cardizem at home, will continue. Qualifiers: Coronary Disease-Associated Artery/Lesion type: bypass graft [place] vs. transplanted heart: [place] heart Associated angina: angina presence unspecified Qualified Code(s): I25.810 - Atherosclerosis of coronary artery bypass graft(s) without angina pectoris (4) Hypertension Current Visit: No Status: Chronic Assessment and plan: BP controlled, continue home meds. Qualifiers: Hypertension type: unspecified Qualified Code(s): I10 - Essential (primary) hypertension (5) CKD (chronic kidney disease) stage 3, GFR 30-59 ml/min Current Visit: No Status: Chronic Assessment and plan: Cr at baseline, continue monitoring. (6) Renal cell carcinoma Current Visit: No Status: Resolved Assessment and plan: In remission, f/u with oncology as outpatient. Qualifiers: Laterality: unspecified laterality Qualified Code(s): C64.9 - Malignant neoplasm of unspecified kidney, except renal pelvis (7) DVT prophylaxis Current Visit: Yes Status: Acute Assessment and plan: heparin sq. - Time Spent With Patient Total time spent is greater than 50% in coordination of care (as documented) at patient's floor/unit and/or counseling patient: Greater than 35 minutes
[2019-03-02] MEDS: Insulin LISPRO 300 UNITS/3 ML VIAL SQ SCH ×2 (16:44→20:46)
[2019-03-02] MEDS: *HR* OxyCODONE/APAP 10/325 TABLET PO PRN ×2 (16:44→20:44)
[2019-03-02] MEDS: Gabapentin 400 MG CAPSULE PO SCH ×2 (16:44→20:37)
[2019-03-02] MEDS: *HR* Heparin 5,000 UNIT/ML VIAL SQ SCH (18:25)
[2019-03-02] MEDS: Diltiazem CD (24hr) 240 MG CAPSULE PO SCH (18:25)
[2019-03-03] MEDS: *HR* OxyCODONE/APAP 10/325 TABLET PO PRN ×3 (00:56→21:19)
[2019-03-03 01:16] LABS: Basophils # 0.1 K/mcL (0.0-0.2); Basophils % 0.8 %; Eosinophils # 0.3 K/mcL (0.0-0.6); Eosinophils % 3.5 %; Hematocrit 38.1 % (37.5-50.1); Hemoglobin 11.9 g/dL (12.9-16.9); Immature Granulocytes % 0.3 % (0-4); Lymphocytes # 2.9 K/mcL (0.6-4.6); Lymphocytes % 36.5 %; Mean Corpuscular HGB Conc 31.2 g/dL (31.6-35.5); Mean Corpuscular Hemoglobin 28.1 pg (28.0-33.3); Mean Corpuscular Volume 89.9 fL (83.0-100.0); Mean Platelet Volume 10.4 fL (9.4-12.4); Monocytes # 0.6 K/mcL (0.0-1.3); Monocytes % 8.2 %; Platelet Count 276 K/mcL (140-400); Red Blood Count 4.24 M/mcL (4.19-5.50); Segmented Neutrophils % 50.7 %; White Blood Count 7.8 K/mcL (4.3-11.1)
[2019-03-03 01:30] LABS: Albumin 3.8 g/dL (3.5-5.7); Albumin/Globulin Ratio 1.4 (1.1-2.2); Bilirubin,Total 0.3 mg/dL (0.3-1.0); Calcium 8.9 mg/dL (8.6-10.3); Chol/HDL Ratio 5.2 (0-4.9); Globulin 2.8 g/dL (2.4-3.5); Phosphorous 3.6 mg/dL (2.7-4.5); Potassium 4.7 mEq/L (3.5-5.1); Total Protein 6.6 g/dL (6.4-8.9)
[2019-03-03] MEDS: *HR* Heparin 5,000 UNIT/ML VIAL SQ SCH ×2 (04:58→17:44)
--- NOTE | 2019-03-03 06:20 | Electrocardiograph Report ---
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
[2019-03-03] MEDS: Cholecalciferol (D-3) 1,000 UNIT (25MCG) TABLET PO SCH (07:51)
[2019-03-03] MEDS: Isosorbide MONOnitrate (24 HR) 60 MG TAB.ER.24H PO SCH (07:52)
[2019-03-03] MEDS: Bumetanide 1 MG TABLET PO SCH (07:52)
[2019-03-03] MEDS: Aspirin 81 MG TAB.CHEW PO SCH (07:52)
[2019-03-03] MEDS: Gabapentin 400 MG CAPSULE PO SCH ×3 (07:52→21:01)
[2019-03-03] MEDS: Insulin LISPRO 300 UNITS/3 ML VIAL SQ SCH ×4 (07:54→21:02)
--- NOTE | 2019-03-03 08:30 | Cardiology Consult Note ---
Date of Encounter: 03/03/19 Time of Encounter: 08:28 Assessment and Plan (1) Abnormal stress test Current Visit: Yes Status: Acute Recently had an abnormal stress test for which he was scheduled a LHC with Dr. Diego on 03/09. Presents to the ER with worsening fatigue and SOB. States he feels similar to how he did before his CABG in 2014. Denies CP, pal pitations and edema. Troponins negative x2. EKG NSR, no ischemic changes. Stress 02/22/19: small sized, mild intensity, reversible apex and apical inferior defect, possibly due to ischemia. Given pt's cardiac hx and worsening symptoms, will proceed with LHC today. Of note, patient has CKD3 and a solitary kidney. Creat 1.8 today, Nephro is following. A/R/B discussed with patient and his family, they are agreeable. (2) Shortness of breath Current Visit: Yes Status: Acute Echo pending. Assessment and plan as above. (3) CAD (coronary artery disease) Current Visit: No Status: Chronic Hx 2v CABG in 2014 and LHC in 2016 showing patent grafts to the OM and [place] to LAD and non-obstructive disease in the [place] RCA. [place] ASA, Statin and Imdur. Plan as above. Qualifiers: Coronary Disease-Associated Artery/Lesion type: bypass graft [place] vs. transplanted heart: [place] heart Associated angina: angina presence unspecified Qualified Code(s): I25.810 - Atherosclerosis of coronary artery bypass graft(s) without angina pectoris Discussion w patient/family: The assessment and plan as outlined above was discussed with the patient and/or family members who expressed understanding and agreement. All questions were answered. Thank you for involving us in the care of your patient. Please call with any questions. The above assessment and plan will be discussed with Dr. Elliott and I will make changes as necessary. History of Present Illness Consult date: 03/03/19 Consult reason: SOB, Hx CABG, planned LHC 03/09 History of present illness: Mr. Linder is a 78 year old male with PMH of HTN, HLD, DM and CAD s/p 2v CABG in 2014. Recently had an abnormal stress test for which he was scheduled a LHC with Dr. Diego on 03/09. Presents to the ER with worsening fatigue and SOB. States he feels similar to how he did before his CABG in 2014. Denies CP, palpitations and edema. Previous CV Testing: -Stress 02/22/19: small sized, mild intensity, reversible apex and apical inferior defect, possibly due to ischemia. -Echo 05/31/18: LVEF 70-75%, hyperdynamic LV, Normal LV chamber size, wall thickness and systolic function, Mild left ventricular diastolic dysfunction, Normal right ventricular structure and function, No significant valvular dysfunction. -LHC 01/26/15: 55% Left main stenosis, S/P CABG 2 of 2 patent bypass grafts. Past Med Surg Social Fam HX - Past Medical History Medical history: cancer, coronary artery disease, diabetes, hyperlipidemia, hypertension, myocardial infarction, renal disease, other Additional medical history: atherosclerotic cardio disease Psychiatric history: no psych history - Past Surgical History Surgical History: cancer surgery, coronary bypass (CABG), orthopedic, other, prostatectomy, other Additional surgical history: rt kidney removed - Social History Smoking Status: Former smoker Smokeless Tobacco Status: No Alcohol use: none Drug use: none - Family History Father Living Status: Hx Family Cancer: Yes (Lymphoma) Mother Living Status: Hx Family Cardiac Disorders: Yes (heart failure) Hx Family Medical Disorders: Yes (DM) Medications and Allergies OxyCODONE/APAP 10/325 [Percocet 10/325 MG] 1 each PO Q4HR PRN 02/15/16 [History] Cholecalciferol (D-3) [Vitamin D] 5,000 unit PO DAILY 05/12/16 [History] Isosorbide MONOnitrate (24 HR) [Imdur] 60 mg PO DAILY 05/31/18 [History] Aspirin 81 mg PO DAILY #30 tab.chew 06/01/18 [Rx] Gemfibrozil [Lopid] 300 mg PO DAILY 08/31/18 [History] Omeprazole [PriLOSEC] 40 mg PO DAILY 08/31/18 [History] Simvastatin [Zocor] 40 mg PO DAILY 08/31/18 [History] Diltiazem CD (24hr) [Cardizem CD] 240 mg PO 1800 09/01/18 [History] Gabapentin 400 mg PO TID 09/01/18 [History] Ondansetron HCl 8 mg PO TID PRN 09/01/18 [History] Bumetanide 1 mg PO 1300 03/02/19 [History] Bumetanide 2 mg PO QAM 03/02/19 [History] Donepezil HCl [Aricept] 5 mg PO DAILY 03/02/19 [History] GlipiZIDE [Glucotrol] 10 mg PO BIDWM 03/02/19 [History] Naloxegol Oxalate [Movantik] 12.5 mg PO DAILY 03/02/19 [History] Subcutaneous Insulin Pump [T:Slim] 1 each AD 03/02/19 [History] Allergy/AdvReac Type Severity Reaction Status Date / Time No Known Allergies Allergy Verified 05/31/18 07:14 All Systems Review: The remainder of the systems were reviewed and are negative - Cardiovascular Cardiovascular: as per HPI Physical Examination Vital Signs, Last 4 Hours Temp Pulse Resp BP Pulse Ox 03/03/19 06:30 97.7 F 67 16 147/81 94 General: Conversant, No Apparent Distress HEENT: Atraumatic, Normocephaly, Mucus Membranes Moist Neck: No JVD Cardiac: Reg Rate and Rhythm, Normal S1 and S2, No Murmur Lungs: Normal Breath Sounds, No Wheeze, Rales, Rhonchi Neuro: Alert and responsive, No focal deficits noted Abdomen: Soft, Non-Tender Skin: No rashes noted on visualized skin Musculoskeletal: No Chest Wall Tenderness Extremities: No Clubbing, No Cyanosis, Normal Pulses, Other (non pitting BLE edema) Results 03/03/19 00:48 03/03/19 00:48 Lab Results 03/02/19 03/02/19 03/02/19 11:56 11:56 11:56 WBC 8.4 Hgb 11.7 L Hct 37.2 L Plt Count 293 INR 1.0 APTT 19.6 L Sodium 136 Potassium 4.8 Chloride 104 Carbon Dioxide 24 BUN 29 H Creatinine 1.87 H Glucose 335 H Calcium 8.7 Magnesium 1.9 Total Bilirubin 0.3 AST 13 ALT 14 Alkaline Phosphatase 55 Troponin I < 0.03 B-Natriuretic Peptide 03/02/19 03/02/19 03/03/19 11:56 16:34 00:48 WBC 7.8 Hgb 11.9 L Hct 38.1 Plt Count 276 INR APTT Sodium Potassium Chloride Carbon Dioxide BUN Creatinine Glucose Calcium Magnesium Total Bilirubin AST ALT Alkaline Phosphatase Troponin I < 0.03 B-Natriuretic Peptide 69 10/03/19 00:48 WBC Hgb Hct Plt Count INR APTT Sodium 136 Potassium 4.7 Chloride 105 Carbon Dioxide 25 BUN 27 H Creatinine 1.80 H Glucose 233 H Calcium 8.9 Magnesium 2.0 Total Bilirubin 0.3 AST 15 ALT 12 Alkaline Phosphatase 47 Troponin I B-Natriuretic Peptide - Imaging and Cardiology Stress Test: report reviewed Echo: report reviewed Cardiac cath: report reviewed Holter: report reviewed Other Results: 12hr tele reviewed: average HR 67, NSR with PVCs, no events noted. - EKG Interpretation EKG results cardiology: personally reviewed, normal ECG, sinus rhythm Consult Discharge Plan - Plan Referrals: Jaja Parrish MD [Primary Care Provider] - HAS-BLED Score - Score Elderly: Age>65 years Medication usage predisposing to bleeding: Antiplatelet agents, NSAIDs, Anticoagulants Score: 2 Cardiac Rehab - Cardiac Rehab Cardiac Rehab: Phase I consult completed. Patient was educated on why Cardiac Rehabilitation is beneficial to his/her health. Participating in a cardiac rehabilitation can improve the following: strengthen your heart, improve ejection fraction, weight reduction, decrease cholesterol levels, lower blood pressure, lower blood sugar, improve stamina, and enhance self-image. If he/she has any questions, they were instructed to call [facility] at [phone].
--- NOTE | 2019-03-03 10:21 | Nephrology Consult Note ---
Date of Encounter: 03/03/19 Time of Encounter: : Assessment and Plan (1) CKD (chronic kidney disease) stage 3, GFR 30-59 ml/min Current Visit: No Status: Chronic Gentle IV fluids before and after heart cath 0.9 normal saline at 60ml hour-ordered If heart cath is postpone for later than tomorrow IV fluids need to be stopped until closer to cath time Patient has a solitary kidney due to hx of kidney carcinoma Scr 1.80, GFR 37-baseline for CKD stage 3b Follows with Dr Gar in office (2) Shortness of breath Current Visit: Yes Status: Acute Per cardiology team History of Present Illness - Reason for Consult Consult date: 03/03/19 - Chief Complaint chest pain; CKD3b - History of Present Illness Mr. Linder is a 78 year old male with a past medical history of hypertension, CKD stage 3b, diabetes, hyperlipidemia, coronary artery disease, [id number] i n 2014 who came to the emergency department with several episodes of shortness of breath on previous night. He typically has shortness of breath that worsens with exertion, however the patient says that the episodes of shortness of breath that he has had today feel different from his typical. 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 Diego. Patient is scheduled for heart cath and neph rology has been asked to assist with protecting his kidneys during this procedure. Past Med Surg Social Fam HX - Past Medical History Medical history: cancer, coronary artery disease, diabetes, hyperlipidemia, hypertension, myocardial infarction, renal disease, other Additional medical history: atherosclerotic cardio disease Psychiatric history: no psych history - Past Surgical History Surgical History: cancer surgery, coronary bypass (CABG), orthopedic, other, prostatectomy, other Additional surgical history: rt kidney removed - Social History Smoking Status: Former smoker Smokeless Tobacco Status: No Alcohol use: none Drug use: none - Family History Father Living Status: Hx Family Cancer: Yes (Lymphoma) Mother Living Status: Hx Family Cardiac Disorders: Yes (heart failure) Hx Family Medical Disorders: Yes (DM) Medications and Allergies OxyCODONE/APAP 10/325 [Percocet 10/325 MG] 1 each PO Q4HR PRN 02/15/16 [History] Cholecalciferol (D-3) [Vitamin D] 5,000 unit PO DAILY 05/12/16 [History] Isosorbide MONOnitrate (24 HR) [Imdur] 60 mg PO DAILY 05/31/18 [History] Aspirin 81 mg PO DAILY #30 tab.chew 06/01/18 [Rx] Gemfibrozil [Lopid] 300 mg PO DAILY 08/31/18 [History] Omeprazole [PriLOSEC] 40 mg PO DAILY 08/31/18 [History] Simvastatin [Zocor] 40 mg PO DAILY 08/31/18 [History] Diltiazem CD (24hr) [Cardizem CD] 240 mg PO 1800 09/01/18 [History] Gabapentin 400 mg PO TID 09/01/18 [History] Ondansetron HCl 8 mg PO TID PRN 09/01/18 [History] Bumetanide 1 mg PO 1300 03/02/19 [History] Bumetanide 2 mg PO QAM 03/02/19 [History] Donepezil HCl [Aricept] 5 mg PO DAILY 03/02/19 [History] GlipiZIDE [Glucotrol] 10 mg PO BIDWM 03/02/19 [History] Naloxegol Oxalate [Movantik] 12.5 mg PO DAILY 03/02/19 [History] Subcutaneous Insulin Pump [T:Slim] 1 each MC AD 03/02/19 [History] Allergy/AdvReac Type Severity Reaction Status Date / Time No Known Allergies Allergy Verified 05/31/18 07:14 Review of Systems All Systems: reviewed and no additional remarkable complaints except as stated Constitutional: no fatigue, no fever(s) Cardiovascular: leg edema, no chest pain Respiratory: dyspnea, dyspnea on exertion Gastrointestinal: no nausea Neurological: no behavioral changes Exam - Vital Signs Vital signs: Initial Vital Signs Temp Pulse Resp BP Pulse Ox 97.5 F L 69 20 128/65 95 03/02/19 11:06 03/02/19 11:06 03/02/19 11:06 03/02/19 11:06 03/02/19 11:06 Vital Signs - Last 8 Hours Temp Pulse Resp BP Pulse Ox 03/03/19 06:30 97.7 F 67 16 147/81 94 03/03/19 03:38 97.8 F 80 16 145/73 95 Intake and Output 03/02/19 03/03/19 03/03/19 23:59 07:59 15:59 Intake Total 240 / 240 Output Total 400 / 400 800 / 800 Balance -160 / -160 -800 / -800 Intake: Oral 240 / 240 Output: Urine 400 / 400 800 / 800 Other: Meal Dinner Percent of Meal Consumed 90% Weight 122.3 kg Blood Glucose* 243 233 Patient Weight 03/03/19 23:59 Weight 122.3 kg - General Appearance General appearance: obese EENT: ATNC, mucous membranes moist, hearing intact, vision intact Neck: supple Respiratory: clear Cardiology: edema (mild BLL edema), normal S1, normal S2 Gastrointestinal: no tenderness, no guarding Integumentary: warm and dry Neurologic: alert and oriented x3 Psychiatric: mood/affect appropriate, cooperative Results - Lab Results 03/03/19 00:48 03/03/19 00:48 Most recent lab results 03/03/19 00:48 Calcium 8.9 Phosphorus 3.6 Magnesium 2.0 Consult Discharge Plan - Plan Referrals: Jaja Parrish MD [Primary Care Provider] -
--- NOTE | 2019-03-03 10:40 | Internal Med Progress Note ---
Hospitalist Progress Note - Encounter Date of Encounter: 03/03/19 Time of Encounter: 10:37 - Subjective Interval History: Mr. Linder is a 78 year old male with a past medical history of hypertension, diabetes, hyperlipidemia, coronary artery disease, [id number] in 2014 who came to the emergency department with several episodes of shortness of breath on previous night. He typically has shortness of breath that worsens with exertion, however the patient says that the episodes of shortness of breath that he has had today feel different from his typical. 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 Diego. He denied having any chest pain, diaphoresis, syncope. No nausea, vomiting, fevers, chills. No abdominal pain, constipation, diarrhea. Patient was primarily concerned because he had similar symptoms when he first had his CABG. He otherwise denies any recent travel, surgeries/hospitalizations. Does use testosterone shots. He does have a remote history of cancer, however he is in remission. Patient had an abnormal stress test and was scheduled to have another heart catheterization on February 07. He denies any lower extremity edema or shortness of breath with positional changes. Is currently on aspirin. In the ED, his vital signs were stable. Trop was negative. EKG has no acute st-t changes. He is admitted for further evaluation. Patient seen and examined in the room, he reported occasional dyspnea on exertion, denies chest pain currently. - Exam Vitals: Temp Pulse Resp BP Pulse Ox 97.7 F 67 16 147/81 94 03/03/19 06:30 03/03/19 06:30 03/03/19 06:30 03/03/19 06:30 03/03/19 06:30 Exam: PHYSICAL EXAMINATION: GENERAL APPEARANCE: The patient is alert, oriented and in no acute distress. HEENT: Head is normocephalic. The sinuses are nontender. Pupils are equal and reactive. The nares are patent. Oropharynx clear without lesions. NECK: Supple without lymphadenopathy. HEART: Regular rate and rhythm. LUNGS: No crackles or wheezes are heard. ABDOMEN: Soft, nontender, nondistended with good bowel sounds heard. Inguinal area is normal. EXTREMITIES: Without cyanosis, clubbing or edema. NEUROLOGICAL: Gross nonfocal. SKIN: Warm and dry without any rash. - Assessment and Plan (1) Shortness of breath Current Visit: Yes Status: Acute Assessment and Plan: 78 year old male with CAD s/p CABG presented with dyspnea on exertion. Recent stress test was abnormal. Had worsening sob recently. CTA chest has no acute abnormalities. Cardiology consulted. (2) Diabetes Current Visit: No Status: Chronic Assessment and Plan: Hold oral agents, started on insulin sliding scale. Repeat A1c. (3) CAD (coronary artery disease) Current Visit: No Status: Chronic Assessment and Plan: On asa, statins, lopid, Imdur and cardizem at home, continue. cardiology following, appreciate help. (4) Hypertension Current Visit: No Status: Chronic Assessment and Plan: BP controlled, continue home meds. (5) CKD (chronic kidney disease) stage 3, GFR 30-59 ml/min Current Visit: No Status: Chronic Assessment and Plan: Cr at baseline, renal consulted, gentle hydration with IVF started for upcoming [facility]. (6) Renal cell carcinoma Current Visit: No Status: Resolved Assessment and Plan: In remission, f/u with oncology as outpatient. (7) DVT prophylaxis Current Visit: Yes Status: Acute Assessment and Plan: heparin sq. - Time Spent with Patient Total time spent is greater than 50% in coordination of care (as documented) at patient's floor/unit and/or counseling patient: Greater than 35 minutes Plan of Care Discussed with: patient Internal Medicine: Result - Labs CBC & Chem 7: 03/03/19 00:48 03/03/19 00:48 Labs: Short CBC 03/02/19 03/03/19 Range/Units 11:56 00:48 WBC 8.4 7.8 (4.3-11.1) K/mcL Hgb 11.7 L 11.9 L (12.9-16.9) g/dL Hct 37.2 L 38.1 (37.5-50.1) % Plt Count 293 276 (140-400) K/mcL Neutrophils # 4.7 4.0 (1.6-8.9) K/mcL BMP 03/02/19 03/03/19 11:56 00:48 Sodium 136 136 Potassium 4.8 4.7 Chloride 104 105 Carbon Dioxide 24 25 BUN 29 H 27 H Creatinine 1.87 H 1.80 H Glucose 335 H 233 H Calcium 8.7 8.9 Cardiac Enzymes 03/02/19 03/02/19 Range/Units 11:56 16:34 Troponin I < 0.03 < 0.03 (< 0.04) ng/mL Liver Function 03/02/19 03/03/19 Range/Units 11:56 00:48 Total Bilirubin 0.3 0.3 (0.3-1.0) mg/dL AST 13 15 (13-39) Units/L ALT 14 12 (7-52) Units/L Alkaline Phosphatase 55 47 (34-104) Units/L Albumin 3.8 3.8 (3.5-5.7) g/dL - ABG Interpretation ABG results: PT/INR, D-dimer PT 11.5 Seconds (9.4-12.1) 03/02/19 11:56 - Impressions Impressions Chest X-Ray 03/02/19 11:52 IMPRESSION: No evidence for acute cardiopulmonary process. D/ / 03/02/2019 11:57:57 Dominic Millan MD / aminata Interpreting Provider: Dominic Millan MD Consult Discharge Plan - Plan Referrals: Jaja Parrish MD [Primary Care Provider] - (2) Diabetes Qualifiers: Diabetes mellitus type: type 2 Diabetes mellitus alf insulin use: without intermediate manager use Diabetes mellitus complication status: with circulatory complication Qualified Code(s): E11.51 - Type 2 diabetes mellitus with diabetic peripheral angiopathy without gangrene (3) CAD (coronary artery disease) Qualifiers: Coronary Disease-Associated Artery/Lesion type: bypass graft [place] vs. transplanted heart: [place] heart Associated angina: angina presence unspecified Qualified Code(s): I25.810 - Atherosclerosis of coronary artery bypass graft(s) without angina pectoris (4) Hypertension Qualifiers: Hypertension type: unspecified Qualified Code(s): I10 - Essential (primary) hypertension (6) Renal cell carcinoma Qualifiers: Laterality: unspecified laterality Qualified Code(s): C64.9 - Malignant neoplasm of unspecified kidney, except renal pelvis
[2019-03-03] MEDS: 0.9 % Sodium Chloride 1,000 ML IVC SCH (11:21)
[2019-03-03] MEDS ORDERED: *HR* FentaNYL (PF) 100 MCG/2 ML VIAL ONE (12:20)
[2019-03-03] MEDS ORDERED: *HR* Midazolam HCl 2 MG/2 ML VIAL ONE (12:20)
[2019-03-03] MEDS ORDERED: Verapamil 5 MG/2 ML VIAL ONE (12:20)
[2019-03-03] MEDS ORDERED: 0.9 % Sodium Chloride 1,000 ML ONE (12:21)
[2019-03-03] MEDS ORDERED: Heparin 1,000 UNITS/500 mL 500 ML ONE (12:21)
[2019-03-03] MEDS ORDERED: ISOVUE-370 200 ML INFUS..BTL ONE (12:21)
[2019-03-03] MEDS ORDERED: Nitroglycerin 1,000 MCG/10 ML VIAL IV ONE (12:21)
[2019-03-03] MEDS ORDERED: *HR* Heparin 10,000 UNIT/10 ML VIAL ONE (12:21)
--- NOTE | 2019-03-03 12:49 | Pre-Sedation Evaluation ---
Pre-sedation evaluation - Pre-sedation checklist Date of procedure: 03/03/19 Procedure: left heart cath Recent Vitals: Last Vital Signs Temp 97.7 F 03/03/19 11:03 Pulse 75 03/03/19 11:03 Resp 14 03/03/19 11:03 BP 150/64 03/03/19 11:03 Pulse Ox 94 03/03/19 11:03 H&P (including ROS) documented in medical record: Yes Previous reaction to sedatives/anesthetics: No Dietary Status: NPO after Midnight Airway Assessment: Patient can open mouth completely, TMJ function normal Dentition: poor dentition Possible difficult airway: No ASA Classification *see protocol: CLASS II-Mild systemic disease Cardiac Registry (Cardio Only) - Functional Capacity Functional Capacity: >=4 METS with symptoms - Clincal Frailty Scale Clinical Frailty Scale: Well
[2019-03-03] MEDS ORDERED: Bumetanide 1 MG TABLET PO SCH (13:00)
--- NOTE | 2019-03-03 13:36 | Event Note ---
Date of Encounter: 03/03/19 Time of Encounter: 13:34 - Cardiology Event Note Catheter completed. LVEF 55%, normal wall motion. RCA dominant, proximal ulcerated 70-75% lesion. 3.0 CANDY to 0%. LCA mid LAD 100% Circumflex 100% SVG to0M patent HAMILTON to LAD patent Right femoral approach with Perclose. Recommendations Medical therapy Dual antiplatelet therapy Risk factor modification
--- NOTE | 2019-03-03 13:48 | Invasive Diagnostic Lab Proc ---
Name: Shyam Linder Date of Study: 03/03/2019 Date: 1940 Ht: 66.1in Medical Record#: [id number] Age: 78 Wt: 268.96lb Gender: Male BSA: 2.27 Order #: [id number] BMI: 43.28 Physicians Procedure Physician: Charly Casey MD Referring MD: Referring MD: Staff Name Position Time In Donnie Rivera RN Monitor 12:54 PM Perlita Lopez RT (R) Scrub 12:54 PM Grayson Pulliam RN Videotape Operator 12:54 PM Antonio Andujar RT (R) Scrub 01:09 PM Indications Indication Worsening Angina Procedures Performed Procedure L HRT ART/GRFT ANGIO PRQ CARD CANDY STENT W/ANGIO 1 VSL Pre-Procedure Checklist Informed consent is complete signed and on chart. H&P is on chart. ID band is on and ID verified with patient. Patient NPO for procedure The procedure was described for the patient and questions were answered. Blood Pressure: 147/81 ECG is on chart. Rhythm: NSR Plan of Care Patient will tolerate the procedure without complications. Adequate level of comfort will be maintained. Hemodynamics will remain stable Patient will recover from procedure without complications. Respiratory function will be maintained. Cardiac rhythm will remain stable. Patient temperature will be maintained. Patient and/or family have verbalized understanding of the procedure. Patient Education Intravenous Access Time IV Size Location DC'd Fluid/Drip Rate Units RN 10:19 AM 22g 1" Patent On Arrival Rt Hand 0.9NaCl 50 ml/hr Grayson Pulliam RN Allergies No Known Allergies Vital Signs Time BP (mmHg) HR (bpm) O2 Sat. RR (bpm) LOC 147 / 81 67 94 % 16 5 = Fully awake and oriented or at pre-proc level 12:55 PM / % 5 = Fully awake and oriented or at pre-proc level 12:55 PM / % 4 = Oriented but drowsy 12:55 PM 142 / 82 76 96 % 13 12:59 PM 129 / 70 74 94 % 16 01:04 PM 134 / 75 72 94 % 28 01:09 PM 145 / 73 76 95 % 36 01:15 PM 143 / 60 68 94 % 26 01:19 PM 139 / 74 71 94 % 13 01:25 PM 158 / 84 62 96 % 13 01:30 PM 164 / 83 71 89 % 10 Procedural Medications Time Medication Dose Units Method Given By 12:55 PM Oxygen 2 L/min nasal cannula Grayson Pulliam RN 12:55 PM Versed 2 mg Intravenous Grayson Pulliam RN 12:59 PM Lidocaine 2% 10 ml Subcutaneous Charly Casey MD 01:12 PM Heparin 7000 units Intravenous Grayson Pulliam RN 01:14 PM Nitroglycerin 200 mcg Intracoronary Charly Casey MD 01:24 PM Plavix 600 mg Orally Grayson Pulliam RN ASA Classification: CLASS II- Mild systemic disease (i.e. well-controlled diabetes, hypertension, asthma, cigarette smoking) Sita Score Preprocedure Postprocedure Activity 2- Moves 4 extremities sustained head lift Activity 2- Moves 4 extremities sustained head lift Circulation 2- SBP +/= 20 points of pre-anesthetic level Circulation 2- SBP +/= 20 points of pre-anesthetic level Consciousness 2- Awake and alert oriented x 3 Consciousness 2- Awake and alert oriented x 3 O2 Saturation 2- Able to maintain O2 satruation of 92% on room air O2 Saturation 2- Able to maintain O2 satruation of 92% on room air Respiratory 2- Able to deep breathe and cough well Respiratory 2- Able to deep breathe and cough well Total Score 10 Total Score 10 Contrast Agent: Isovue Diagnostic Contrast: 100 ml Total Contrast: 100 ml Fluoro Dose: 44 mGy Activated Clotting Time Time Seconds to Clot 01:26 PM 323 Procedure Log Time Note Enter By 12:53 PM Vitals capture started with the following parameters, Patient=Adult, Interval=5 min, Initial Kfrqwoyr=707 mmHg, Deflation Rate=3 mmHg, Cuff placed on Right Arm 12:54 PM Recorded ECG: HR=76 Condition=Condition 1 12:54 PM Pt arrived to clinical laboratory assistant 2 at 12:54 cedwards 12:54 PM Donnie Rivera RN Position: Monitor Time in: 12:54 cedwards 12:54 PM Perlita Lopez RT (R) Position: Scrub Time in: 12:54 cedwards 12:54 PM Grayson Pulliam RN Position: Videotape Operator Time in: 12:54 cedwards 12:55 PM Patient charges- Angio tray pack, Navilyst 3mm J, Pulse Oximetry and ACIST tubing and transducer cedwards 12:55 PM HR=76 bpm, WDQO=743/82 mmhg, SpO2=96.0 %, Resp=13 B/min 12:55 PM IV Supplies used: J loop Angio Cath. cedwards 12:55 PM Physician arrived 12:55 cedwards 12:55 PM ASA Class CLASS II- Mild systemic disease (i.e. well-controlled diabetes, hypertension, asthma, cigarette smoking) cedwards 12:55 PM Meet and gela completed cedwards 12:55 PM Sign in performed according to hospital policy. Informed consent was obtained. cedwards 12:55 PM Procedure start 12:55 cedwards 12:55 PM Time: 12:55 Patient comfortable and pain free: Yes cedwards 12:55 PM Time: 12:55LOC: 5 = Fully awake and oriented or at pre-proc level cedwards 12:55 PM Time: 12:55 Oxygen on at 2 L/min per nasal cannula by Grayson Pulliam RN cedwards 12:55 PM Time: 12:55 Versed 2 mg Intravenous Given by Grayson Pulliam RN cedwards 12:56 PM CathStat 12:58 PM Time out was performed according to hospital policy. Conscious sedation and anesthesia was achieved (see medication log with in this report above) cedwards 12:59 PM Time: 12:59 10 ml Lidocaine 2% to right groin Subcutaneous Given by Charly Casey MD cedwards 12:59 PM Access obtained by percutaneous puncture. 6Fr 10cm Terum[employer] [place] sheath placed in right Femoral artery. [id number] cedwards 12:59 PM HR=74 bpm, RODL=520/70 mmhg, SpO2=94.0 %, Resp=16 B/min 01:00 PM 0.035 145cm Navilyst 3mmJ wire [id number] cedwards 01:00 PM 6Fr FR 4 catheter inserted over the wire DN cedwards 01:01 PM RCA angiography performed in multiple views. cedwards 01:01 PM Recorded Pressure: Ao, HR=73, Condition=Condition 1 (Aorta) Ao 109/65/82 01:03 PM SVG to the 1st OM angio performed in multiple views. cedwards 01:04 PM Recorded Pressure: Ao, HR=72, Condition=Condition 1 (Aorta) Ao 108/59/80 01:04 PM HR=72 bpm, GDUV=749/75 mmhg, SpO2=94.0 %, Resp=28 B/min 01:07 PM Left SHRAVAN to the LAD angio performed in multiple views. cedwards 01:07 PM Catheter removed cedwards :07 PM 6Fr FL 4 catheter inserted over the wire [facility] cedwards 01:07 PM Coronary Dominance: right cedwards 01:08 PM Recorded Pressure: Ao, HR=73, Condition=Condition 1 (Aorta) Ao 122/50/77 01:08 PM LCA angiography performed in multiple views. cedwards 01:09 PM HR=76 bpm, JIGL=367/73 mmhg, SpO2=95.0 %, Resp=36 B/min 01:10 PM Antonio Andujar RT (R) Position: Scrub Time in: 13:09 cedwards 01:10 PM Time: 12:55LOC: 4 = Oriented but drowsy cedwards 01:10 PM Time: 12:55 Patient comfortable and pain free: Yes cedwards 01:10 PM Catheter removed cedwards 01:10 PM 5Fr Pigtail catheter inserted over the wire [facility] cedwards :11 PM Recorded Pressure: LV, HR=70, Condition=Condition 1 (Left Ventricle) LV 131/-1/5 01:11 PM Recorded Pressure: LV, HR=66, Condition=Condition 1 (Left Ventricle) LV 134/2/7 01:11 PM Recorded Pressure: LV, Ao, HR=69, Condition=Condition 1 (Left Ventricle) LV 133/7/27, (Aorta) Ao 137/55/83 01:11 PM Catheter crossed the aortic valve and was selectively placed in the left ventricle. Pressures recorded on pullback for left heart catheterization. cedwards 01:11 PM Bolus angiogram of left Ventricle complete: hand injection cedwards 01:12 PM Time: 13:12 Heparin 7000 units Intravenous Given by Grayson Pulliam RN cedwards 01:13 PM 6Fr JR 4 Runway guide catheter was used to cannulate the PCI vessel successfully. reused? No cedwards :13 PM .014 Balance 300cm guide wire across target lesion- successful. reused? No cedwards 01:14 PM Lesion found in Proximal RCA. Pre Stenosis: 70 Pre MATTHEW Flow: 3: Complete and Brisk Flow/Perfusion cedwards 01:14 PM Recorded Pressure: Ao, HR=68, Condition=Condition 1 (Aorta) Ao 130/53/84 01:14 PM Time: 13:14 Nitroglycerin 200 mcg Intracoronary Given by Charly Casey MD cedwards 01:15 PM HR=68 bpm, RINW=019/60 mmhg, SpO2=94.0 %, Resp=26 B/min 01:15 PM 3.0mm x 16mm Synergy drug-eluting stent across target lesion- successful Lot #[id number] cedwards 01:17 PM Inflation device was opened. cedwards 01:19 PM HR=71 bpm, KAHN=314/74 mmhg, SpO2=94.0 %, Resp=13 B/min 01:20 PM Stent deployed @ 13 mari for 32 seconds cedwards 01:21 PM Stent delivery system removed intact. cedwards 01:21 PM Guide wire removed intact. cedwards 01:21 PM Guide catheter removed intact. cedwards 01:21 PM Recorded Pressure: Ao, HR=70, Condition=Condition 1 (Aorta) Ao 145/62/96 01:23 PM Femoral angiogram performed by hand injection cedwards 01:23 PM Procedure completed at 13:23 03/03/2019 cedwards 01:24 PM Time: 13:24 Plavix 600 mg Orally Given by Grayson Pulliam RN cedwards 01:24 PM Did you address MATTHEW flow and Dominance? YesCoronary Dominance: right cedwards 01:25 PM Sign out completed: Radiation Dose 655.991 mGy, 44.1 Gy/cm2 Fluoro Time: 6.8 Isovue 370 - 200ml contrast 100 ml given by Charly Casey MD. Complications: None. 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 Sedation minutes 28. Cardiac Rehab Consult needed: Yes. Confirmed administered medications: Yes cedwards 01:25 PM Isovue 370 - 200ml,1 Bottle(s) used. cedwards 01:25 PM Arterial sheath pulled, Perclose closure device used and was Successful [id number] S/N. cedwards 01:25 PM HR=62 bpm, UUUU=376/84 mmhg, SpO2=96.0 %, Resp=13 B/min 01:26 PM Estimated Blood Loss: minimal cedwards 01:26 PM Post ECG NSR cedwards 01:26 PM Post Blood Pressure 158/84 cedwards 01:26 PM Information taught Cardiac Cath, PCI, and Perclose cedwards 01:26 PM Education needs Procedure, Plan of Care, and Disease Process cedwards 01:26 PM At 13:26 the ACT was 323 seconds. cedwards 01:26 PM Learning barriers :None cedwards 01:26 PM Education Methods Verbal cedwards 01:26 PM Education evaluation Able to repeat information cedwards 01:26 PM Site status No bleeding/ No Hematoma - Rt Groin as reported by Charly Casey MD at 13:26 cedwards 01:26 PM Opsite applied cedwards 01:28 PM Plavix, Effient or Brilinta given Yes cedwards 01:28 PM Family placed in consult room. cedwards 01:28 PM Complications: None cedwards 01:30 PM HR=71 bpm, PKMM=427/83 mmhg, SpO2=89 %, Resp=10 B/min 01:32 PM Lesion found in Proximal LMCA. Pre Stenosis: 30 Pre MATTHEW Flow: cedwards 01:32 PM Lesion found in Mid LMCA. Pre Stenosis: 30 Pre MATTHEW Flow: cedwards 01:32 PM Lesion found in Distal LMCA. Pre Stenosis: 70 Pre MATTHEW Flow: cedwards 01:33 PM Lesion found in Mid LAD. Pre Stenosis: 100 Pre MATTHEW Flow: cedwards 01:33 PM Lesion found in Proximal Circumflex. Pre Stenosis: 100 Pre MATTHEW Flow: cedwards 01:41 PM Report given to Citlali BROWN Pt taken to 3B Room #66. 13:41 cedwards 01:41 PM Patient out of room: 13:41 cedwards Complications Complication None None Hemodynamics Pressures Site Systolic/A Wave Diastolic/V Wave Mean AO 109 65 82 AO 108 59 80 AO 122 50 77 LV 131 -1 5 LV 134 2 7 LV 133 7 27 AO 137 55 83 AO 130 53 84 AO 145 62 96 Post Procedure Information Blood Pressure: 158/84 mmHg Rhythm: NSR Post procedural instructions were given Site Checks Time Location Status Staff Sheath In? Note 01:26 PM Rt Groin No bleeding/ No Hematoma Charly Casey MD Pulses Time Site Pre-Procedure Post-Procedure Note 03/03/2019 10:19:00 AM Bilateral DP & PT 1+ 1+ Bilateral radial 2+ 2+ Updated by Donnie Rivera RN on 03/03/2019 1:42:57 PM electronically signed on 03/03/2019 1:43:38 PM with status of Final
[2019-03-03] MEDS: Diltiazem CD (24hr) 240 MG CAPSULE PO SCH (17:44)
[2019-03-04] MEDS: 0.9 % Sodium Chloride 1,000 ML IVC SCH (03:41)
[2019-03-04 04:37] LABS: Basophils # 0.1 K/mcL (0.0-0.2); Basophils % 0.7 %; Eosinophils # 0.2 K/mcL (0.0-0.6); Hematocrit 41.9 % (37.5-50.1); Hemoglobin 13.2 g/dL (12.9-16.9); Immature Granulocytes % 0.2 % (0-4); Lymphocytes # 2.5 K/mcL (0.6-4.6); Lymphocytes % 30.8 %; Mean Corpuscular HGB Conc 31.5 g/dL (31.6-35.5); Mean Corpuscular Hemoglobin 28.3 pg (28.0-33.3); Mean Corpuscular Volume 89.7 fL (83.0-100.0); Mean Platelet Volume 10.6 fL (9.4-12.4); Monocytes # 0.7 K/mcL (0.0-1.3); Monocytes % 8.7 %; Neutrophils # 4.7 K/mcL (1.6-8.9); Platelet Count 295 K/mcL (140-400); Red Blood Count 4.67 M/mcL (4.19-5.50); Segmented Neutrophils % 57.6 %; White Blood Count 8.1 K/mcL (4.3-11.1)
[2019-03-04 04:51] LABS: Calcium 9.2 mg/dL (8.6-10.3); Potassium 4.4 mEq/L (3.5-5.1)
[2019-03-04] MEDS: *HR* Heparin 5,000 UNIT/ML VIAL SQ SCH (06:02)
[2019-03-04 06:54] VITALS: BP 112/75
--- NOTE | 2019-03-04 08:23 | Cardiology Progress Note ---
Date of Encounter: 03/04/19 Time of Encounter: 08:20 Assessment and Plan (1) CAD (coronary artery disease) Current Visit: No Status: Chronic Per Cardiology: Hx 2v CABG in 2015. Trops - x 2. Recent abnormal ST. EF 60% on echo. S/p LHC: Lesion Findings/Interventions * Left Main Coronary Artery There is a 30% stenosis in the Proximal LMCA. There is a 30% stenosis in the Mid LMCA. There is a 70% stenosis in the Distal LMCA. * Left Anterior Descending There is a 100% stenosis in the Mid LAD. * Circumflex There is a 100% stenosis in the Proximal Circumflex. * Right Coronary Artery There is a 16 mm long, 70% ulcerated stenosis in the Proximal RCA. The lesion has a MATTHEW flow of 3. An intervention was performed on the Proximal RCA with a final stenosis of 0%. There were no lesion complications. The final MATTHEW flow was 3. Additional Findings: Comments * drug eluding stent placed in proximal right coronary artery. MATTHEW flow pre-pre-and post-stent implantation. Grafts * The saphenous vein graft to the 1st Marginal is patent. MATTHEW flow is 3. * The left internal mammary graft to the Mid LAD is patent. MATTHEW flow is 3. On aspirin, Plavix, statin, beta mitzi, and long-acting nitrate. Postprocedure education provided. All questions answered. Discussed the primary service, cardiology signing off, reconsult as needed, follow-up arranged. Qualifiers: Coronary Disease-Associated Artery/Lesion type: bypass graft [place] vs. transplanted heart: [place] heart Associated angina: angina presence unspecified Qualified Code(s): I25.810 - Atherosclerosis of coronary artery bypass graft(s) without angina pectoris Discussion w patient/family: The assessment and plan as outlined above was discussed with the patient and/or family members who expressed understanding and agreement. All questions were answered. Thank you for involving us in the care of your patient. Please call with any questions. Subjective Principal diagnosis: CAD Interval history: Seen with at bedside. He denies any chest pain, shortness of breath, palpitations. Denies any concerns/right groin site. Reports pending discharged home. Objective Vital Signs, Last 4 Hours Temp Pulse Resp BP Pulse Ox 03/04/19 06:52 98.1 F 68 19 112/75 94 General: Conversant, No Apparent Distress HEENT: Atraumatic, Normocephaly, Mucus Membranes Moist Neck: No JVD, Normal carotid pulses Cardiac: Reg Rate and Rhythm, Normal S1 and S2, No Murmur Lungs: Normal Breath Sounds, No Wheeze, Rales, Rhonchi Neuro: Alert and responsive, No focal deficits noted Abdomen: Soft, Non-Tender Skin: No rashes noted on visualized skin, Other (Right groin site dry and intact, no hematoma, no bleeding, no ecchymosis, right PT and DP pulses 1+ palpable) Musculoskeletal: No Chest Wall Tenderness Extremities: No Clubbing, No Cyanosis, No Edema, Normal Pulses Results 03/04/19 03:32 03/04/19 03:32 Lab Results Laboratory Tests 03/02/19 03/02/19 03/04/19 11:56 16:34 03:32 Hgb 13.2 Hct 41.9 Creatinine Est GFR (Non-Af Amer) Troponin I < 0.03 < 0.03 03/04/19 03:32 Hgb Hct Creatinine 1.95 H Est GFR (Non-Af Amer) 34 L Troponin I ITS Impressions Chest X-Ray 03/02/19 11:52 IMPRESSION: No evidence for acute cardiopulmonary process. D/ / 03/02/2019 11:57:57 Dominic Millan MD / aminata Interpreting Provider: Dominic Millan MD Echocardiogram 03/03/19 10:57 Impressions: LVEF 60%. Atypical septal motion consistent with post-operative status. Mild left ventricular diastolic dysfunction. Normal right ventricular structure with low normal systolic function. Mild mitral regurgitation. Mild tricuspid regurgitation. No pulmonary hypertension. Left Ventricular Wall Motion: Rest Echo Findings All wall segments showed normal motion. Findings: Study Quality * Technically adequate exam. ECG Findings * Normal sinus rhythm. Left Ventricle * LVEF 60%. * Atypical septal motion consistent with post-operative status. * Mild left ventricular diastolic dysfunction. Right Ventricle * Normal right ventricular structure with low normal systolic function. Left Atrium * Normal left atrial size. Right Atrium * Normal right atrial size. Aortic Valve * No aortic regurgitation. * Aortic valve not well visualized. * No aortic stenosis. Mitral Valve * Mild mitral annular calcification * No mitral stenosis. * Mild mitral regurgitation. * Normal mitral valve structure. Tricuspid Valve * Normal tricuspid valve structure. * Mild tricuspid regurgitation. Pulmonic Valve * Pulmonic valve is not well visualized. * No pulmonic stenosis. * No pulmonic regurgitation. Pulmonary Artery * Pulmonary artery not well visualized. Aorta * Normally sized aortic root. Pericardium * There is no pericardial effusion present. Interatrial Septum * No evidence of PFO by color Doppler. IVC * The IVC is not dilated. Active Medications Acetaminophen (Tylenol) 650 mg PO Q6HR PRN PRN Reason: Mild Pain/Fever Stop: 09/01/19 14:03 Al Hydrox/Mg Hydrox/Simethicone (Maalox) 15 ml PO Q6HR PRN PRN Reason: Dyspepsia Stop: 09/01/19 14:03 Aspirin (Aspirin) 81 mg PO DAILY [facility] Stop: 09/02/19 09:01 Last Admin: 03/03/19 07:52 Dose: 81 mg Documented by: Bumetanide (Bumex) 1 mg PO 1300 [facility] Stop: 09/02/19 13:01 Last Admin: 03/03/19 14:06 Dose: Not Given Documented by: Bumetanide (Bumex) 2 mg PO QAM [facility] Stop: 09/02/19 09:01 Last Admin: 03/03/19 07:52 Dose: 2 mg Documented by: Clopidogrel Bisulfate (Plavix) 75 mg PO DAILY [facility] Stop: 09/03/19 09:01 Dextrose/Water (Dextrose 50% (Syg)) 25 ml IVP AD PRN PRN Reason: Hypoglycemia Stop: 09/01/19 14:08 Diltiazem HCl (Cardizem Cd) 240 mg PO 1800 [facility] Stop: 09/01/19 18:01 Last Admin: 03/03/19 17:44 Dose: 240 mg Documented by: Donepezil HCl (Aricept) 5 mg PO DAILY [facility] Stop: 09/02/19 09:01 Last Admin: 03/03/19 07:52 Dose: 5 mg Documented by: Gabapentin (Neurontin) 400 mg PO TID [facility] Stop: 09/01/19 15:01 Last Admin: 03/03/19 21:01 Dose: 400 mg Documented by: Gemfibrozil (Lopid) 300 mg PO DAILY [facility] Stop: 09/02/19 09:01 Last Admin: 03/03/19 07:51 Dose: 300 mg Documented by: Glucagon (Glucagen) 1 mg IM ONCE PRN PRN Reason: Hypoglycemia Stop: 09/01/19 14:08 Glucose (Gluctose) 15 gm PO ONCE PRN PRN Reason: Hypoglycemia Stop: 09/01/19 14:08 Glucose (Gluctose) 30 gm PO ONCE PRN PRN Reason: Hypoglycemia Stop: 09/01/19 14:08 Heparin Sodium (Porcine) (Heparin) 5,000 unit SQ Q12HCO [facility]; Protocol Stop: 09/01/19 18:01 Last Admin: 03/04/19 06:02 Dose: 5,000 unit Documented by: Dextrose (Dextrose 5%) 1,000 mls @ 100 mls/hr IVC .Q10H PRN PRN Reason: HYPOGLYCEMIA Stop: 09/01/19 14:08 Sodium Chloride (0.9 % Sodium Chloride) 1,000 mls @ 60 mls/hr IVC .[id number] [facility] Stop: 09/02/19 10:31 Last Admin: 03/04/19 03:41 Dose: 60 mls/hr Documented by: Insulin Human Lispro (Humalog) 0 units SQ HS [facility]; Protocol Stop: 09/01/19 21:01 Last Admin: 03/03/19 21:02 Dose: 5 units Documented by: Insulin Human Lispro (Humalog) 0 units SQ TIDAC [facility]; Protocol Stop: 09/01/19 16:31 Last Admin: 03/03/19 17:47 Dose: 2 units Documented by: Isosorbide Mononitrate (Imdur) 60 mg PO DAILY [facility] Stop: 09/02/19 09:01 Last Admin: 03/03/19 07:52 Dose: 60 mg Documented by: Magnesium Hydroxide (Milk Of Magnesia Conc) 10 ml PO DAILY PRN PRN Reason: Constipation Stop: 09/01/19 14:03 Metoprolol Tartrate (Lopressor) 25 mg PO BID [facility] Stop: 09/02/19 21:01 Last Admin: 03/03/19 21:01 Dose: 25 mg Documented by: Naloxone HCl (Narcan) 0.4 mg IVP Q2MPRN PRN PRN Reason: SEE COMMENTS Stop: 09/01/19 14:03 Omeprazole (Prilosec) 40 mg PO DAILY@0630 [facility] Stop: 09/02/19 06:31 Last Admin: 03/04/19 06:01 Dose: 40 mg Documented by: Ondansetron HCl (Zofran) 4 mg IVP Q8HR PRN PRN Reason: Nausea And Vomiting Stop: 09/01/19 14:03 Last Admin: 03/03/19 21:01 Dose: 4 mg Documented by: Oxycodone/Acetaminophen (Percocet 10/325) 1 each PO Q4HR PRN PRN Reason: Pain Stop: 09/01/19 14:06 Last Admin: 03/03/19 21:19 Dose: 1 each Documented by: Pharmacy Profile Note (Patient Taking Own Medication) 1 each PO DAILY [facility] Stop: 09/02/19 09:01 Last Admin: 03/03/19 07:52 Dose: Not Given Documented by: Promethazine HCl (Phenergan) 12.5 mg IVP Q6HR PRN PRN Reason: Nausea And Vomiting Stop: 09/01/19 14:03 Simvastatin (Zocor) 40 mg PO DAILY@2100 [facility] Stop: 09/01/19 21:01 Last Admin: 03/03/19 21:01 Dose: 40 mg Documented by: Vitamin D (Vitamin D) 1,000 unit PO DAILY [facility] Stop: 09/02/19 09:01 Last Admin: 03/03/19 07:51 Dose: 1,000 unit Documented by: - Imaging and Cardiology Echo: report reviewed Cardiac cath: report reviewed Consult Discharge Plan - Plan Referrals: Jaja Parrish MD [Primary Care Provider] - 03/09/19 2:15 pm Cardiac Rehab - Cardiac Rehab Cardiac Rehab: Phase I consult completed. Patient was educated on why Cardiac Rehabilitation is beneficial to his/her health. Participating in a cardiac rehabilitation can improve the following: strengthen your heart, improve ejection fraction, weight reduction, decrease cholesterol levels, lower blood pressure, lower blood sugar, improve stamina, and enhance self-image. If he/she has any questions, they were instructed to call [facility] at [phone].
[2019-03-04] MEDS: Isosorbide MONOnitrate (24 HR) 60 MG TAB.ER.24H PO SCH (08:55)
[2019-03-04] MEDS: Bumetanide 1 MG TABLET PO SCH (08:55)
[2019-03-04] MEDS: Gabapentin 400 MG CAPSULE PO SCH (08:56)
[2019-03-04] MEDS: Aspirin 81 MG TAB.CHEW PO SCH (08:56)
[2019-03-04] MEDS: Cholecalciferol (D-3) 1,000 UNIT (25MCG) TABLET PO SCH (08:56)
[2019-03-04] MEDS: Insulin LISPRO 300 UNITS/3 ML VIAL SQ SCH (08:57)
--- NOTE | 2019-03-04 10:04 | Discharge Summary ---
- NOTES TO OUTPATIENT PROVIDER Notes to Outpatient Provider: f/u with cardiology within 1-2 weeks. f/u with PCP within a week. Date of Encounter: 03/04/19 Time of Encounter: 09:58 - Discharge Diagnosis (1) Shortness of breath Priority: Primary Status: Acute (2) Diabetes Priority: Secondary Status: Chronic Qualifiers: Diabetes mellitus type: type 2 Diabetes mellitus retirement insulin use: without retirement use Diabetes mellitus complication status: with circulatory complication Qualified Code(s): E11.51 - Type 2 diabetes mellitus with diabetic peripheral angiopathy without gangrene (3) CAD (coronary artery disease) Priority: Primary Status: Acute Qualifiers: Coronary Disease-Associated Artery/Lesion type: bypass graft [place] vs. transplanted heart: [place] heart Associated angina: angina presence unspecified Qualified Code(s): I25.810 - Atherosclerosis of coronary artery bypass graft(s) without angina pectoris (4) Hypertension Priority: Secondary Status: Chronic Qualifiers: Hypertension type: unspecified Qualified Code(s): I10 - Essential (primary) hypertension (5) CKD (chronic kidney disease) stage 3, GFR 30-59 ml/min Priority: Secondary Status: Chronic (6) Renal cell carcinoma Priority: Secondary Status: Resolved Qualifiers: Laterality: unspecified laterality Qualified Code(s): C64.9 - Malignant neoplasm of unspecified kidney, except renal pelvis (7) DVT prophylaxis Priority: Primary Status: Acute Hospital course: Mr. Linder is a 78 year old male with a past medical history of hypertension, diabetes, hyperlipidemia, coronary artery disease, [id number] in 2014 who came to the emergency department with several episodes of shortness of breath on previous night. He typically has shortness of breath that worsens with exertion, however the patient says that the episodes of shortness of breath that he has had today feel different from his typical. Was told to come to the ED by his transportation officer, Dr. Diego. He denied having any chest pain, diaphoresis, syncope. No nausea, vomiting, fevers, chills. No abdominal pain, constipation, diarrhea. Patient was primarily concerned because he had similar symptoms when he first had his CABG. Patient had an abnormal stress test recently, was scheduled for LHC on 03/09 initially, however, due to worsening symptoms, he was brought in by cardiology, LHC was performed on 03/03, one stent was placed in RCA. Pt reported improved sob after procedure. He was placed on asa, plavix, statins, BB, and imdur per cardiology. His arterial puncture site is clean without hematoma. He is discharged home today, f/u with PCP and cardiology within 1-2 weeks. Discharge discussed with: patient Time spent discussing smoking cessation with patient: more than 10 minutes - Time Spent with Patient Total time spent providing and/or coordinating discharge services: Time spent: Greater than 30 minutes - Discharge Medications Prescriptions: New Metoprolol [Lopressor] 25 mg PO BID #60 tablet Clopidogrel [Plavix] 75 mg PO DAILY #30 tablet Continued OxyCODONE/APAP 10/325 [Percocet 10/325 MG] 1 each PO Q4HR PRN PRN Reason: Pain Cholecalciferol (D-3) [Vitamin D] 5,000 unit PO DAILY Isosorbide MONOnitrate (24 HR) [Imdur] 60 mg PO DAILY Aspirin 81 mg PO DAILY #30 tab.chew Simvastatin [Zocor] 40 mg PO DAILY Omeprazole [PriLOSEC] 40 mg PO DAILY Gemfibrozil [Lopid] 300 mg PO DAILY Diltiazem CD (24hr) [Cardizem CD] 240 mg PO 1800 Gabapentin 400 mg PO TID Ondansetron HCl 8 mg PO TID PRN PRN Reason: NAUSEA/VOMITING Donepezil HCl [Aricept] 5 mg PO DAILY GlipiZIDE [Glucotrol] 10 mg PO BIDWM Naloxegol Oxalate [Movantik] 12.5 mg PO DAILY Bumetanide 2 mg PO QAM Bumetanide 1 mg PO 1300 Subcutaneous Insulin Pump [T:Slim] 1 each AD Home Medications: OxyCODONE/APAP 10/325 [Percocet 10/325 MG] 1 each PO Q4HR PRN 02/15/16 [History] Cholecalciferol (D-3) [Vitamin D] 5,000 unit PO DAILY 05/12/16 [History] Isosorbide MONOnitrate (24 HR) [Imdur] 60 mg PO DAILY 05/31/18 [History] Aspirin 81 mg PO DAILY #30 tab.chew 06/01/18 [Rx] Gemfibrozil [Lopid] 300 mg PO DAILY 08/31/18 [History] Omeprazole [PriLOSEC] 40 mg PO DAILY 08/31/18 [History] Simvastatin [Zocor] 40 mg PO DAILY 08/31/18 [History] Diltiazem CD (24hr) [Cardizem CD] 240 mg PO 1800 09/01/18 [History] Gabapentin 400 mg PO TID 09/01/18 [History] Ondansetron HCl 8 mg PO TID PRN 09/01/18 [History] Bumetanide 1 mg PO 1300 03/02/19 [History] Bumetanide 2 mg PO QAM 03/02/19 [History] Donepezil HCl [Aricept] 5 mg PO DAILY 03/02/19 [History] GlipiZIDE [Glucotrol] 10 mg PO BIDWM 03/02/19 [History] Naloxegol Oxalate [Movantik] 12.5 mg PO DAILY 03/02/19 [History] Subcutaneous Insulin Pump [T:Slim] 1 each MC AD 03/02/19 [History] Clopidogrel [Plavix] 75 mg PO DAILY #30 tablet 03/04/19 [Rx] Metoprolol [Lopressor] 25 mg PO BID #60 tablet 03/04/19 [Rx] Allergies/Adverse Reactions: Allergy/AdvReac Type Severity Reaction Status Date / Time No Known Allergies Allergy Verified 05/31/18 07:14 Date of admission: 03/02/19 13:55 Primary care physician: Jaja Parrish Consults: 03/02/19 14:04 Consult to Cardiology [CONS] Routine Comment: Consulting Provider: Cardiology Padmini Reason for Consult: SOB, hx CABG, planned to have LHC Call Completed: Yes 03/03/19 09:39 Consult to Nephrology [CONS] Routine Consulting Provider: Kidney Padmini/BRAXTON/JUAN LUIS/MILDRED Reason for Consult: CKD and needs LHC with IV contrast Call Completed: Yes 03/03/19 13:36 Consult to Cardiac Rehabilitation-Phase1 [CONS] Routine Comment: Reason for Consult: post op PCI Call Completed: Yes Anticipated date of discharge: 03/04/19 - Constitutional Vitals: Temp Pulse Resp BP Pulse Ox 98.1 F 68 19 112/75 94 03/04/19 06:52 03/04/19 06:52 03/04/19 06:52 03/04/19 06:52 03/04/19 06:52 General appearance: Present: A&O X 3 Exam: PHYSICAL EXAMINATION: GENERAL APPEARANCE: The patient is alert, oriented and in no acute distress. HEENT: Head is normocephalic. The sinuses are nontender. Pupils are equal and reactive. The nares are patent. Oropharynx clear without lesions. NECK: Supple without lymphadenopathy. HEART: Regular rate and rhythm. LUNGS: No crackles or wheezes are heard. ABDOMEN: Soft, nontender, nondistended with good bowel sounds heard. Inguinal area is normal. EXTREMITIES: Without cyanosis, clubbing or edema. NEUROLOGICAL: Gross nonfocal. SKIN: Warm and dry without any rash. - Patient Status Disposition: Home, Self-Care Condition: Fair Functional capacity at discharge: independent ambulation Overall status at discharge: patient is progressing back to baseline - Discharge Instructions Follow Up With: Jaja Parrish MD [Primary Care Provider] - 03/09/19 2:15 pm - Diet and Activity Activity: increase activity as tolerated Diet: diabetic diet, low fat, low cholesterol, low salt diet
--- NOTE | 2019-03-04 18:44 | Electrocardiograph Report ---
[place] [id number] Test Date: 2019-03-04 Pat Name: Shyam Linder Department: 113 Room: 3B Gender: M Medical Translator: : 1940 Requested By: Charly Caesy Order Number: [id number] Reading MD: Rodrigo Santizo Measurements Intervals [place] Rate: 72 P: MN: 0 QRS: 49 QRSD: 93 T: 90 QT: 401 QTc: 426 Interpretive Statements Sinus Rhythm Prolonged MN interval NONSPECIFIC T-WAVE ABNORMALITY ABNORMAL RHYTHM ECG Electronically Signed On 03-04-2019 18:43:01 EDT by Rodrigo Santizo
== END 2019-03-04 10:20 | disposition home or self-care (01) ==
LOC: EMEROOARM 11:03 → 3BNU 11:03
PROVIDERS: ADMIT Internal Medicine; ATTEND Internal Medicine

== ENCOUNTER 2019-05-02 12:25 | Inpatient (IN) ==
[2019-05-02] MEDS ORDERED: Aspirin 325 MG TABLET PO ONE (13:34)
[2019-05-02 13:54] LABS: Basophils # 0.1 K/mcL (0.0-0.2); Basophils % 0.6 %; Eosinophils # 0.1 K/mcL (0.0-0.6); Eosinophils % 1.2 %; Hematocrit 43.3 % (37.5-50.1); Hemoglobin 13.3 g/dL (12.9-16.9); Immature Granulocytes % 0.2 % (0-4); Lymphocytes # 2.2 K/mcL (0.6-4.6); Lymphocytes % 25.4 %; Mean Corpuscular HGB Conc 30.7 g/dL (31.6-35.5); Mean Corpuscular Hemoglobin 27.9 pg (28.0-33.3); Monocytes # 0.8 K/mcL (0.0-1.3); Monocytes % 8.8 %; Neutrophils # 5.5 K/mcL (1.6-8.9); Platelet Count 245 K/mcL (140-400); Red Blood Count 4.76 M/mcL (4.19-5.50); Red Cell Distribution Width 14.6 % (11.5-14.5); Segmented Neutrophils % 63.8 %; White Blood Count 8.6 K/mcL (4.3-11.1)
[2019-05-02 14:12] LABS: BUN/Creatinine Ratio 11 (6-26); Blood Urea Nitrogen 22 mg/dL (8-23); Calcium 8.9 mg/dL (8.6-10.3); Carbon Dioxide 25 mEq/L (23-29); Chloride 100 mEq/L (98-107); Glucose 290 mg/dL (70-105); Osmolality,Calculated 296 (280-300); Potassium 4.6 mEq/L (3.5-5.1); Sodium 136 mEq/L (136-145); Troponin I < 0.03 ng/mL (< 0.04); eGFR For African Americans 38 (> 60); eGFR For Non-African Americans 31 (> 60)
[2019-05-02] MEDS ORDERED: Naloxone 0.4 MG/ML INJ IVP PRN (17:01)
[2019-05-02] MEDS ORDERED: Dextrose Gel 15 GM/37.5 ML TUBE PO PRN ×2 (17:04)
[2019-05-02] MEDS ORDERED: D5% in Water 1,000 ML IVC PRN (17:04)
[2019-05-02] MEDS ORDERED: *HR* Dextrose 50 % in Water (Syg) 50 ML SYRINGE IVP PRN (17:04)
[2019-05-02] MEDS: *HR* Heparin 5,000 UNIT/ML VIAL SQ SCH (20:43)
[2019-05-02] MEDS: Gabapentin 400 MG CAPSULE PO SCH (20:43)
[2019-05-02] MEDS: Insulin DETEMIR 100 UNIT/ML X5UNITS SQ SCH (20:45)
[2019-05-02] MEDS: Diltiazem CD (24hr) 240 MG CAPSULE PO SCH (20:50)
[2019-05-02] MEDS: *HR* HYDROcodone/Acet 5/325 mg TABLET PO PRN (21:03)
[2019-05-03 01:45] LABS: INR 1.1; Prothrombin Time 12.2 Seconds (9.4-12.1)
[2019-05-03 01:48] LABS: Activated Partial Thrombo Time 31.3 Seconds (26.0-36.0)
[2019-05-03 02:00] LABS: Calcium 8.6 mg/dL (8.6-10.3); Magnesium 1.7 mg/dL (1.6-2.6); Phosphorous 3.5 mg/dL (2.7-4.5); Potassium 4.4 mEq/L (3.5-5.1)
[2019-05-03] MEDS: *HR* Heparin 5,000 UNIT/ML VIAL SQ SCH ×2 (06:14→17:14)
[2019-05-03] MEDS: *HR* HYDROcodone/Acet 5/325 mg TABLET PO PRN ×2 (06:18→14:46)
[2019-05-03] MEDS: Insulin LISPRO 300 UNITS/3 ML VIAL SQ SCH ×3 (08:00→16:58)
[2019-05-03] MEDS: Isosorbide MONOnitrate (24 HR) 60 MG TAB.ER.24H PO SCH (08:08)
[2019-05-03] MEDS: Cholecalciferol (D-3) 1,000 UNIT (25MCG) TABLET PO SCH (08:08)
[2019-05-03] MEDS: Gabapentin 400 MG CAPSULE PO SCH ×3 (08:09→19:34)
[2019-05-03] MEDS: Aspirin 81 MG TAB.CHEW PO SCH (08:09)
[2019-05-03] MEDS: Bumetanide 1 MG/4 ML VIAL IVP SCH (17:14)
[2019-05-03] MEDS: Diltiazem CD (24hr) 240 MG CAPSULE PO SCH (19:35)
[2019-05-03] MEDS: Insulin DETEMIR 100 UNIT/ML X5UNITS SQ SCH (22:03)
[2019-05-04] MEDS: *HR* HYDROcodone/Acet 5/325 mg TABLET PO PRN ×2 (02:21→16:27)
[2019-05-04 05:28] LABS: Hematocrit 45.6 % (37.5-50.1); Mean Corpuscular HGB Conc 30.7 g/dL (31.6-35.5); Mean Corpuscular Hemoglobin 27.7 pg (28.0-33.3); Mean Corpuscular Volume 90.3 fL (83.0-100.0); Mean Platelet Volume 10.9 fL (9.4-12.4); Platelet Count 276 K/mcL (140-400); Red Blood Count 5.05 M/mcL (4.19-5.50); Red Cell Distribution Width 14.7 % (11.5-14.5); White Blood Count 7.7 K/mcL (4.3-11.1)
[2019-05-04 05:53] LABS: Calcium 9.1 mg/dL (8.6-10.3)
[2019-05-04] MEDS: *HR* Heparin 5,000 UNIT/ML VIAL SQ SCH (06:27)
[2019-05-04] MEDS: Gabapentin 400 MG CAPSULE PO SCH ×2 (08:01→16:14)
[2019-05-04] MEDS: Aspirin 81 MG TAB.CHEW PO SCH (08:01)
[2019-05-04] MEDS: Isosorbide MONOnitrate (24 HR) 60 MG TAB.ER.24H PO SCH (08:02)
[2019-05-04] MEDS: Bumetanide 1 MG/4 ML VIAL IVP SCH (08:02)
[2019-05-04] MEDS: Cholecalciferol (D-3) 1,000 UNIT (25MCG) TABLET PO SCH (08:02)
[2019-05-04] MEDS: Insulin LISPRO 300 UNITS/3 ML VIAL SQ SCH ×2 (08:11→12:25)
[2019-05-04 11:06] VITALS: BP 114/61
[2019-05-04] MEDS ORDERED: Bumetanide 1 MG TABLET PO SCH (17:00)
== END 2019-05-04 16:58 | disposition left against medical advice (07) | DRG 291 ==
LOC: 3BNU 12:25 → EMEROOARM 12:25 → 3BNU 20:02
PROVIDERS: ADMIT Internal Medicine; ATTEND Internal Medicine

== ENCOUNTER 2019-12-29 09:39 | Observation (INO) ==
[2019-12-29 10:50] LABS: Hematocrit 36.5 % (37.5-50.1); Hemoglobin 11.6 g/dL (12.9-16.9); Mean Corpuscular HGB Conc 31.8 g/dL (31.6-35.5); Mean Corpuscular Hemoglobin 28.9 pg (28.0-33.3); Mean Corpuscular Volume 90.8 fL (83.0-100.0); Mean Platelet Volume 10.9 fL (9.4-12.4); Platelet Count 253 K/mcL (140-400); Red Blood Count 4.02 M/mcL (4.19-5.50); Red Cell Distribution Width 13.8 % (11.5-14.5); White Blood Count 15.5 K/mcL (4.3-11.1)
[2019-12-29 11:16] LABS: Alanine Aminotransferase 21 Units/L (7-52); Albumin 4.2 g/dL (3.5-5.7); Albumin/Globulin Ratio 1.4 (1.1-2.2); Alkaline Phosphatase 51 Units/L (34-104); Aspartate Amino Transferase 17 Units/L (13-39); BUN/Creatinine Ratio 15 (6-26); Bilirubin,Indirect 0.4 mg/dL (0.0-1.0); Bilirubin,Total 0.4 mg/dL (0.3-1.0); Blood Urea Nitrogen 36 mg/dL (8-23); Carbon Dioxide 30 mEq/L (23-29); Chloride 98 mEq/L (98-107); Glucose 68 mg/dL (70-105); Osmolality,Calculated 293 (280-300); Sodium 138 mEq/L (136-145); Total Protein 7.2 g/dL (6.4-8.9); Troponin I < 0.03 ng/mL (< 0.04); eGFR For African Americans 33 (> 60); eGFR For Non-African Americans 27 (> 60)
[2019-12-29 13:54] LABS: Bilirubin,Urine Negative (Negative); Blood,Urine Negative (Negative); Clarity,Urine Clear (Clear); Color,Urine Light-Yellow (Yellow); Glucose,Urine (UA) Normal (Normal); Ketones,Urine Negative (Negative); Leukocyte Esterase,Urine Negative (Negative); Nitrite,Urine Negative (Negative); Protein,Urine Trace mg/dL (Neg-Trace); Specific Gravity,Urine 1.015 (1.010-1.025); Urobilinogen,Urine Normal (Normal)
[2019-12-29] MEDS ORDERED: Naloxone 0.4 MG/ML INJ IVP PRN (14:44)
[2019-12-29] MEDS ORDERED: Ondansetron ODT 4 MG TAB.RAPDIS SL PRN (14:44)
[2019-12-29] MEDS ORDERED: 0.9 % Sodium Chloride 1,000 ML IVC ONE (15:01)
[2019-12-29] MEDS ORDERED: 0.9 % Sodium Chloride 1,000 ML IVC SCH (15:15)
[2019-12-29] MEDS ORDERED: Aspirin 325 MG TABLET PO ONE (15:21)
[2019-12-29 15:40] LABS: Basophils % 0.3 %; Eosinophils # 0.2 K/mcL (0.0-0.6); Immature Granulocytes % 0.3 % (0-4); Lymphocytes # 3.2 K/mcL (0.6-4.6); Lymphocytes % 20.8 %; Monocytes # 1.4 K/mcL (0.0-1.3); Monocytes % 8.9 %; Neutrophils # 10.6 K/mcL (1.6-8.9); Segmented Neutrophils % 68.7 %
[2019-12-29] MEDS: Gabapentin 300 MG CAPSULE PO SCH ×2 (15:45→22:08)
[2019-12-29] MEDS ORDERED: Perflutren Lipid Microsphere 1.3 ML in 0.9 % Sodium Chloride 8.7 ML IVP PRN (16:33)
[2019-12-29 16:34] LABS: Magnesium 2.2 mg/dL (1.6-2.6); Phosphorous 3.3 mg/dL (2.7-4.5); Prothrombin Time 11.9 Seconds (9.4-12.1)
[2019-12-29] MEDS ORDERED: D5% in Water 1,000 ML IVC PRN (16:43)
[2019-12-29] MEDS ORDERED: Dextrose Gel 15 GM/37.5 ML TUBE PO PRN ×2 (16:43)
[2019-12-29] MEDS ORDERED: *HR* Dextrose 50 % in Water (Vial) 50 ML VIAL IVP PRN (16:43)
[2019-12-29] MEDS ORDERED: *HR* LORazepam 2 MG/ML VIAL IVP ONE (16:52)
[2019-12-29 17:15] LABS: Troponin I < 0.03 ng/mL (< 0.04)
[2019-12-29] MEDS ORDERED: Bumetanide 1 MG TABLET PO SCH (18:00)
[2019-12-29] MEDS: *HR* OxyCODONE/APAP 10/325 TABLET PO PRN (18:12)
[2019-12-29] MEDS ORDERED: Insulin LISPRO 300 UNITS/3 ML VIAL SQ SCH (21:00)
[2019-12-30 01:44] LABS: Calcium 8.9 mg/dL (8.6-10.3); Potassium 4.2 mEq/L (3.5-5.1)
[2019-12-30 05:47] LABS: Basophils % 0.4 %; Eosinophils # 0.2 K/mcL (0.0-0.6); Eosinophils % 2.5 %; Hematocrit 36.9 % (37.5-50.1); Hemoglobin 11.3 g/dL (12.9-16.9); Immature Granulocytes % 0.4 % (0-4); Lymphocytes # 2.5 K/mcL (0.6-4.6); Mean Corpuscular HGB Conc 30.6 g/dL (31.6-35.5); Mean Corpuscular Hemoglobin 28.1 pg (28.0-33.3); Mean Corpuscular Volume 91.8 fL (83.0-100.0); Mean Platelet Volume 10.9 fL (9.4-12.4); Monocytes % 8.6 %; Neutrophils # 4.1 K/mcL (1.6-8.9); Platelet Count 217 K/mcL (140-400); Red Blood Count 4.02 M/mcL (4.19-5.50); Red Cell Distribution Width 13.9 % (11.5-14.5); Segmented Neutrophils % 55.1 %
[2019-12-30 05:48] LABS: Monocytes # 0.7 K/mcL (0.0-1.3); White Blood Count 7.5 K/mcL (4.3-11.1)
[2019-12-30] MEDS: *HR* OxyCODONE/APAP 10/325 TABLET PO PRN (06:19)
[2019-12-30 07:16] VITALS: BP 145/69
[2019-12-30] MEDS ORDERED: Insulin LISPRO 300 UNITS/3 ML VIAL SQ SCH (07:30)
[2019-12-30] MEDS ORDERED: (Naloxegol Oxalate [Movantik] 12.5 MG) PO SCH (09:00)
[2019-12-30] MEDS ORDERED: Isosorbide MONOnitrate (24 HR) 60 MG TAB.ER.24H PO SCH (09:00)
[2019-12-30] MEDS ORDERED: Cholecalciferol (D-3) 1,000 UNIT (25MCG) TABLET PO SCH (09:00)
[2019-12-30] MEDS ORDERED: DilTIAZem CD (24hr) 120 MG CAP.ER.24H PO SCH (09:00)
[2019-12-30] MEDS ORDERED: Bumetanide 1 MG TABLET PO SCH (09:00)
[2019-12-30] MEDS ORDERED: Aspirin 81 MG TAB.CHEW PO SCH (09:00)
[2019-12-30] MEDS: Gabapentin 300 MG CAPSULE PO SCH (09:29)
[2019-12-30 11:05] LABS: Estimated Average Glucose 212 mg/dl
== END 2019-12-30 11:18 | disposition home or self-care (01) ==
LOC: 3ANU 09:39 → EMEROOARM 09:39 → SUATTDRO 13:36 → 3ANU 14:39
PROVIDERS: ADMIT Family Medicine; ATTEND Internal Medicine

== ENCOUNTER 2021-04-16 17:43 | Observation (INO) ==
[2021-04-16] MEDS ORDERED: 0.9 % Sodium Chloride 500 ML IV ONE (18:19)
[2021-04-16 19:28] LABS: Hemoglobin 10.8 g/dL (12.9-16.9); Mean Corpuscular HGB Conc 31.8 g/dL (31.6-35.5); Mean Corpuscular Hemoglobin 28.9 pg (28.0-33.3); Mean Corpuscular Volume 90.9 fL (83.0-100.0); Mean Platelet Volume 11.2 fL (9.4-12.4); Platelet Count 228 K/mcL (140-400); Red Blood Count 3.74 M/mcL (4.19-5.50); Red Cell Distribution Width 14.9 % (11.5-14.5); White Blood Count 7.1 K/mcL (4.3-11.1)
[2021-04-16 19:28] LABS: Influenza A PCR Negative (Negative); Influenza B PCR Negative (Negative); Resp. Syncytial Virus PCR Negative (Negative)
[2021-04-16 19:34] LABS: SARS-CoV-2 by PCR (In House) Negative (Negative)
[2021-04-16 19:48] LABS: Alanine Aminotransferase 23 Units/L (7-52); Albumin 3.6 g/dL (3.5-5.7); Albumin/Globulin Ratio 1.4 (1.1-2.2); Alkaline Phosphatase 44 Units/L (34-104); Aspartate Amino Transferase 17 Units/L (13-39); BUN/Creatinine Ratio 19 (6-26); Bilirubin,Indirect 0.4 mg/dL (0.0-1.0); Bilirubin,Total 0.4 mg/dL (0.3-1.0); Blood Urea Nitrogen 39 mg/dL (8-23); C-Reactive Protein 25 mg/L (Less than 10); Calcium 8.2 mg/dL (8.6-10.3); Carbon Dioxide 25 mEq/L (23-29); Chloride 104 mEq/L (98-107); Globulin 2.6 g/dL (2.4-3.5); Glucose 137 mg/dL (70-105); Lipase 8 Units/L (11-82); Osmolality,Calculated 296 (280-300); Potassium 4.4 mEq/L (3.5-5.1); Sodium 137 mEq/L (136-145); Total Protein 6.2 g/dL (6.4-8.9); eGFR For African Americans 37 (> 60); eGFR For Non-African Americans 31 (> 60)
[2021-04-16 19:58] LABS: Eosinophils # 0.3 K/mcL (0.0-0.6); Lymphocytes # 1.3 K/mcL (0.6-4.6); Monocytes # 0.6 K/mcL (0.0-1.3); Polychromasia 1+ (Not Present)
[2021-04-16 20:28] LABS: Troponin I < 0.03 ng/mL (< 0.04)
[2021-04-16 21:00] LABS: Bilirubin,Urine Negative (Negative); Blood,Urine Negative (Negative); Clarity,Urine Clear (Clear); Color,Urine Light-Yellow (Yellow); Glucose,Urine (UA) Normal (Normal); Ketones,Urine Negative (Negative); Leukocyte Esterase,Urine Negative (Negative); Nitrite,Urine Negative (Negative); PH,Urine 5.5 pH Units (5.0-8.0); Protein,Urine Trace mg/dL (Neg-Trace); Specific Gravity,Urine 1.021 (1.010-1.025); Urobilinogen,Urine Normal (Normal)
[2021-04-16] MEDS ORDERED: Calcium Gluconate 1gm/50mL 1 GM/50 ML BAG IVPB ONE (22:29)
[2021-04-16] MEDS ORDERED: Acetaminophen 325 MG TABLET PO PRN (22:30)
[2021-04-16] MEDS ORDERED: Naloxone 0.4 MG/ML INJ IVP PRN (22:30)
[2021-04-16] MEDS: Ondansetron 4 MG/2 ML VIAL IVP PRN (22:39)
[2021-04-16] MEDS ORDERED: Dextrose Gel 15 GM/37.5 ML TUBE PO PRN ×2 (22:42)
[2021-04-16] MEDS ORDERED: *HR* Dextrose 50 % in Water (Syg) 50 ML SYRINGE IVP PRN (22:42)
[2021-04-16] MEDS ORDERED: D5% in Water 1,000 ML IVC PRN (22:42)
[2021-04-17 01:43] LABS: Hematocrit 34.2 % (37.5-50.1); Hemoglobin 10.7 g/dL (12.9-16.9); Mean Corpuscular HGB Conc 31.3 g/dL (31.6-35.5); Mean Corpuscular Hemoglobin 28.6 pg (28.0-33.3); Mean Corpuscular Volume 91.4 fL (83.0-100.0); Platelet Count 211 K/mcL (140-400); Red Blood Count 3.74 M/mcL (4.19-5.50); Red Cell Distribution Width 15.2 % (11.5-14.5); White Blood Count 4.8 K/mcL (4.3-11.1)
[2021-04-17 02:05] LABS: Calcium 8.3 mg/dL (8.6-10.3); Chol/HDL Ratio 3.9 (0-4.9); Magnesium 1.9 mg/dL (1.6-2.6); Potassium 4.1 mEq/L (3.5-5.1)
[2021-04-17 02:07] LABS: Iron 43 mcg/dL (65-175)
[2021-04-17 02:25] LABS: Ferritin 56 ng/mL (20-250)
[2021-04-17 02:30] LABS: Folate 10.2 ng/mL (3.0-16.0)
[2021-04-17 02:57] LABS: Estimated Average Glucose 186 mg/dl; Hemoglobin A1C 8.1 %
[2021-04-17 03:47] LABS: % Iron Saturation 13 % (20-55); Transferrin 233 mg/dL (203-362)
[2021-04-17 07:05] VITALS: O2SAT 93
[2021-04-17] MEDS ORDERED: Famotidine 20 MG TABLET PO SCH (08:00)
[2021-04-17] MEDS: Bumetanide 1 MG TABLET PO SCH ×2 (08:29→11:26)
[2021-04-17] MEDS ORDERED: *HR* OxyCODONE/APAP 10/325 TABLET PO PRN (08:35)
[2021-04-17] MEDS: Ondansetron 4 MG/2 ML VIAL IVP PRN (08:52)
[2021-04-17] MEDS ORDERED: Isosorbide MONOnitrate (24 HR) 60 MG TAB.ER.24H PO SCH (09:00)
[2021-04-17] MEDS ORDERED: Gabapentin 400 MG CAPSULE PO SCH (09:00)
[2021-04-17] MEDS ORDERED: Aspirin Enteric Coated 81 MG Tablet PO SCH (09:00)
[2021-04-17] MEDS ORDERED: DilTIAZem CD (24hr) 120 MG CAP.ER.24H PO SCH (09:00)
[2021-04-17] MEDS ORDERED: Budesonide/Formoterol 160/4.5 1 PUFF INH IH SCH (10:00)
[2021-04-17 11:17] VITALS: BP 104/67; PULSE 68; TEMP 97.9
== END 2021-04-17 14:44 | disposition home or self-care (01) ==
LOC: 3BNU 17:43 → EMEROOARM 17:43 → 3BNU 21:58
PROVIDERS: ADMIT Internal Medicine; ATTEND Internal Medicine